=== PATIENT | female | born 1955 | race Caucasian/White ===

== ENCOUNTER 2017-05-15 22:37 | Emergency (ER) | payer BC ==
[2017-05-15 23:22] VITALS: RESP 18
[2017-05-15 23:33] LABS: Basophils % (A) 1 %; CH 27.9; CHCM 32.8; Eosinophils # (A) 0.1 k/uL (0-0.7); Eosinophils % (A) 2 %; HCT 41.7 % (34.0-46.0); HDW 2.46; HGB 13.3 gm/dL (11.4-16.0); Luc # (Auto) 0.13; Luc % (Auto) 2; Lymphocytes # (A) 2.6 k/uL (1.0-4.8); Lymphocytes % (A) 42 %; MCH 27.4 pg (25.0-35.0); MCV 85.5 fL (80.0-100.0); Monocytes # (A) 0.3 k/uL (0-1.0); Monocytes % (A) 5 %; Neutrophils % (A) 48 %; RBC 4.88 m/uL (3.80-5.40); RDW 13.4 % (11.5-15.5); WBC 6.3 k/uL (3.8-10.6); WBC (Perox) 5.98
[2017-05-15 23:35] LABS: ALT 38 U/L (9-52); AST 21 U/L (14-36); Alkaline Phosphatase 71 U/L (38-126); Amylase 54 U/L (30-110); Anion Gap 11 mmol/L; Blood Urea Nitrogen 17 mg/dL (7-17); Calcium 9.7 mg/dL (8.4-10.2); Carbon Dioxide 21 mmol/L (22-30); Chloride 106 mmol/L (98-107); Glucose 183 mg/dL (74-99); Magnesium 1.9 mg/dL (1.6-2.3); Non-African American GFR(MDRD) >60 (>60 ml/min/1.73 sqM); Potassium 3.5 mmol/L (3.5-5.1); Sodium 138 mmol/L (137-145); Total Bilirubin 0.9 mg/dL (0.2-1.3); Total Protein 6.9 g/dL (6.3-8.2)
[2017-05-15 23:42] LABS: INR 1.1 (<1.2); Partial Thromboplastin Time 23.9 sec (22.0-30.0); Prothrombin Time 11.3 sec (9.0-12.0)
[2017-05-15 23:45] LABS: Creatine Kinase 149 U/L (30-135)
--- NOTE | 2017-05-15 23:46 | XR ---
EXAMINATION TYPE: XR chest 1V portable DATE OF EXAM: 05/15/2017 COMPARISON: 06/27/2016 HISTORY: Chest pain TECHNIQUE: Single frontal view of the chest is obtained. FINDINGS: Heart and mediastinum are normal. Lungs are clear. Diaphragm is normal. There are chest le ads. Bony thorax is intact. IMPRESSION: Normal chest. No change.
--- NOTE | 2017-05-15 23:54 | ED ---
Chest Pain HPI - General Chief Complaint: Chest Pain Stated Complaint: Chest Pain Time Seen by Provider: 05/15/17 22:44 Source: patient Mode of arrival: wheelchair Limitations: no limitations - History of Present Illness Initial Comments: This patient is a 61 year old woman who presents to be evaluated for epigastric and substernal chest pain that developed couple of hours ago as she was eating. The patient states that it felt like her blood was cold there. The pain was constant, moderate intensity, though it resolved after she decided to come emergency department. She did not note any worsening or relieving factors. Patient denied any associated symptoms. No dyspnea, diaphoresis, nausea or vomiting, palpitations, lightheadedness or syncope. Patient states that she has never been a smoker. She states that her mother did require a pacemaker but she is not aware of family members having [facility]. In addition patient states she had a stress test in the cardiology clinic a couple of months ago and was told that this was normal. MD Complaint: chest pain Onset/Timin -: hour(s) Onset: after eating Pain Location: substernal Pain Radiation: none Severity: moderate Quality: other (Like the blood was cold) Consistency: constant, now resolved Improves With: nothing Worsens With: nothing Treatments Prior to Arrival: none - Related Data Home Medications Medication Instructions Recorded Confirmed Calcium Carbonate [Tums] 500 mg PO ONCE PRN 05/15/17 05/15/17 Allergies Allergy/AdvReac Type Severity Reaction Status Date / Time codeine Allergy Swelling Verified 05/15/17 23:12 Review of Systems ROS Statement: Those systems with pertinent positive or pertinent negative responses have been documented in the HPI. ROS Other: All systems not noted in ROS Statement are negative. Constitutional: Denies: fever, chills Respiratory: Denies: cough, dyspnea, wheezes Cardiovascular: Reports: chest pain. Denies: palpitations, syncope Gastrointestinal: Denies: abdominal pain, nausea, vomiting Genitourinary: Denies: dysuria, hematuria Musculoskeletal: Denies: back pain Skin: Denies: rash Neurological: Denies: headache, weakness, numbness Psychiatric: Reports: anxiety EKG Findings - EKG Results: EKG: interpreted by ERMD, sinus rhythm (Rate 94 bpm), normal axis, normal QRS - Blocks, [place], Hypertrophy, ST Abn: Repolarization changes or abnormalities: nonspecific abnormality, ST segment, and/or T wave Past Medical History Past Medical History: Diabetes Mellitus, Hyperlipidemia, Hypertension, Osteoarthritis (OA), Thyroid Disorder Additional Past Medical History / Comment(s): diabetes-diet controlled, neuropathy feet, leg weakness on occasion, pain in neck area History of Any Multi-Drug Resistant Organisms: None Reported Past Surgical History: Back Surgery, Hysterectomy Additional Past Surgical History / Comment(s): multiple moles removed, bartholin cyst , back surgery is scapping of the l4-l5 Past Anesthesia/Blood Transfusion Reactions: No Reported Reaction Additional Past Anesthesia/Blood Transfusion Reaction / Comment(s): pt Jehovah' s Witness states does not want blood or blood products Past Psychological History: Depression Smoking Status: Never smoker Past Alcohol Use History: Rare Past Drug Use History: None Reported - Past Family History Mother Family Medical History: Thyroid Disorder Additional Family Medical History / Comment(s): partial thyroidectomy Brother(s) Family Medical History: Deep Vein Thrombosis (DVT) General Exam Limitations: no limitations General appearance: alert, in no apparent distress Head exam: Present: atraumatic, normocephalic Eye exam: Present: normal appearance. Absent: scleral icterus, conjunctival injection Neck exam: Present: normal inspection, full ROM Respiratory exam: Present: normal lung sounds bilaterally. Absent: respiratory distress, wheezes, rales, rhonchi, stridor, chest wall tenderness Cardiovascular Exam: Present: regular rate, normal rhythm, normal heart sounds. Absent: systolic murmur, diastolic murmur, rubs, gallop GI/Abdominal exam: Present: soft. Absent: distended, tenderness, guarding, rebound, mass Extremities exam: Present: normal inspection, normal capillary refill. Absent: pedal edema, calf tenderness Back exam: Present: normal inspection. Absent: CVA tenderness (R), CVA tenderness (L) Neurological exam: Present: alert Skin exam: Present: warm, dry, intact, normal color. Absent: rash Course Vital Signs 05/15/17 05/15/17 05/15/17 22:38 23:20 23:22 Temperature 97.8 F Pulse Rate 98 94 Pulse Rate [ 94 Control Operator ] Respiratory 16 18 Rate Blood Pressure 216/98 152/86 O2 Sat by Pulse 99 98 Oximetry Chest Pain [facility] Patient is a 61-year-old woman who presents with then episode of atypical chest pain. She does not have risk factors. She did have a recent stress test that was negative. All of her symptoms have resolved then she feels well. 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 She understands that she does need to return should any symptoms recur or any new symptoms develop. Disposition Clinical Impression: Chest pain Disposition: HOME SELF-CARE Condition: Good Instructions: Chest Pain (ED) Referrals: Jet Boswell DO [Primary Care Provider] - 1-2 days
[2017-05-15 23:59] LABS: Troponin I <0.012 ng/mL (0.000-0.034)
[2017-05-16 00:01] LABS: Creatine Kinase MB 2.9 ng/mL (0.0-2.4)
[2017-05-16 00:30] VITALS: BP 145/81; PULSE 88; TEMP 97
== END 2017-05-16 00:36 | disposition home or self-care (01) ==
LOC: EC 22:37
DX: R07.89 Other chest pain (principal); R10.13 Epigastric pain; Z88.5 Allergy status to narcotic agent
CPT/HCPCS: 36415; 71010; 80053; 82150; 82550; 82553; 83690; 83735; 84484; 85025; 85379; 85610; 85730; 93005; 99285

== ENCOUNTER → 2018-05-04 | Outpatient (CLI) | payer BC ==
--- NOTE | 2018-05-05 06:35 | US ---
EXAMINATION TYPE: US thyroid st tissue head/neck DATE OF EXAM: 05/04/2018 COMPARISON: Prior thyroid ultrasound September 21, 2015. CLINICAL HISTORY: E03.9 Hypothyroidism. hx of nodules, bx= inconclusive per patient. No thyroid medi cations. GLAND SIZE: Right Lobe: 4.8 x 2.0 x 1.5 cm Overall Parenchyma: heterogenous Left Lobe: 5.5 x 3.9 x 3.5 cm Overall Parenchyma: heterogeneous Isthmus Thickness: 0.4 cm NODULES RIGHT: # of nodules measured on right: 3 1. 1.7 X 1.5 x 1.3 cm mixed nodule at the lower pole with well-defined margins. This nodule is wid er than tall and shows intranodular vascularity. Prior size: 1.2 x 1.0 x 1.5 cm 2. 1.1 X 1.1 x 0.8 cm mixed nodule at the mid pole with well-defined margins. This nodule is wider than tall and shows intranodular vascularity. Prior size: 0.8 x 0.7 x 0.8 cm 3. 1.1 X 0.8 x 0.9 cm mixed nodule at the mid pole with well-defined margins. This nodule is wider than tall and shows intranodular vascularity. Hard to determine if this was same nodule as previous d ue to cluster of nodules. Prior size: 1.3 x 1.1 x 1.7 cm LEFT: # of nodules measured on left: 2 1. 4.9 X 3.6 x 1.7 cm mixed nodule at the mid pole with well-defined margins. This nodule is wider than tall and shows intranodular vascularity. Prior size: 4.6 x 1.7 x 2.4 cm 2. 1.7 X 1.8 x 1.0 cm mixed nodule at the lower pole with well-defined margins. This nodule is wide r than tall and shows intranodular vascularity. Prior size: 1.6 x 1.1 x 1.8 cm ISTHMUS: # of nodules measured in the isthmus: 0 Bilateral neck scanned, no evidence of lymphadenopathy. IMPRESSION: Findings consistent with multinodular goiter redemonstrated as there is heterogeneous enlarged thyroi d with multiple nodules, dominant nodule left thyroid lobe is not significantly changed. No
== END | disposition home or self-care (01) ==
LOC: RADUSWWP 15:26
PROVIDERS: ATTEND Family Medicine
DX: E04.2 Nontoxic multinodular goiter (principal); E03.9 Hypothyroidism, unspecified
CPT/HCPCS: 76536

== ENCOUNTER → 2018-06-16 | Outpatient (CLI) | payer BC ==
--- NOTE | 2018-06-16 10:57 | BD ---
EXAMINATION TYPE: Axial Bone Density DATE OF EXAM: 06/16/2018 COMPARISON: 06/16/2015 CLINICAL HISTORY: Postmenopausal female. Osteoporosis screening. Height: 5 FT 7 IN Weight: 192 FRAX RISK QUESTIONS: Secondary Osteoporosis: 3. Menopause before 45: YES RISK FACTORS HISTORY OF: Surgery to Spine/Hip(right/left)/Wrist (right/left): LUMBAR SHAVING PER PT When: 15 YEARS AGO Active: YES Postmenopausal woman: PART HYST AGE UNSURE Take estrogen and/or progesterone medications: TOOK BIOIDENTICAL HORMONES How lon 1/2 YRS NO LONGER TAKES Lost more than 2 inches in height since high school: YES MEDICATIONS: Additional Medications: NONE Additional History: EXAM MEASUREMENTS: Bone mineral densitometry was performed using the [employer]. Bone mineral density as measured about the Lumbar spine is: ----- L1-L4(G/cm2): 1.278 T Score Values are as follows: ----- L2: 0.9 ----- L3: 1.6 ----- L4: 0.8 ----- L1-L4: 0.8 Bone mineral density has: DECREASED -2.1 % since study of: 2014 Bone mineral density about the R hip (g/cm2): 0.823 Bone mineral density about the L hip (g/cm2): 0.852 T Score values are as follows: -----R Neck: -1.5 -----L Neck: -1.3 -----R Total: -0.8 -----L Total: -0.6 Bone mineral density has: INCREASED 1.8 % since study of: 2014 IMPRESSION: Osteopenia (T Score between -2.5 and -1) with regards to the bilateral femurs. There is slightly increased risk of fracture and the patient may be considered for treatment. Re-Screen 2-5 years. NOTE: T-SCORE=SD OF THE YOUNG ADULT MEAN.
== END ==
LOC: RADBDWWP 07:01
PROVIDERS: ATTEND Family Medicine
DX: M85.852 Other specified disorders of bone density and structure, left thigh (principal); M85.851 Other specified disorders of bone density and structure, right thigh; Z78.0 Asymptomatic menopausal state
CPT/HCPCS: 77080

== ENCOUNTER → 2018-08-03 | Outpatient (CLI) | payer BC ==
--- NOTE | 2018-08-09 09:48 | MM ---
Reason for exam: screening (asymptomatic). Last mammogram was performed 1 year and 1 month ago. History: Patient is postmenopausal. Family history of premenopausal breast cancer in sister at age 36 and premenopausal breast cancer in sister at age 50. Benign stereotactic core biopsy of the right breast, August 06, 2002. Cyst aspiration of the right breast. Core biopsy of the right breast. Took estrogen for 14 years. Took other hormone for 2 years. MG 3D Screening Mammo W/Cad Bilateral CC and MLO view(s) were taken. Prior study comparison: July 16, 2017, bilateral MG 3d screening mammo w/cad. June 06, 2015, bilateral MG 3d screening mammo w/cad. There are scattered fibroglandular densities. Previous mammotome biopsy right breast with stable adjacent group of calcification. Adjacent central asymmetry on the right CC view is also unchanged from 2015. No significant changes when compared with prior studies. ASSESSMENT: Benign, BI-RAD 2 RECOMMENDATION: Routine screening mammogram of both breasts in 1 year.
== END | disposition home or self-care (01) ==
LOC: RADMAMWWP 07:53
PROVIDERS: ATTEND Family Medicine
DX: Z12.31 Encounter for screening mammogram for malignant neoplasm of breast (principal); Z80.3 Family history of malignant neoplasm of breast
CPT/HCPCS: 77063; 77067

== ENCOUNTER → 2019-08-26 | Outpatient (CLI) | payer BC ==
--- NOTE | 2019-08-27 13:41 | MM ---
Reason for exam: screening (asymptomatic). Last mammogram was performed 1 year and 1 month ago. History: Patient is postmenopausal. Family history of premenopausal breast cancer in sister at age 36 and premenopausal breast cancer in sister at age 50. Benign stereotactic core biopsy of the right breast, August 06, 2002. Cyst aspiration of the right breast. Core biopsy of the right breast. Took estrogen for 14 years. Took other hormone for 2 years. Physical Findings: A clinical breast exam by your physician is recommended on an annual basis and results should be correlated with mammographic findings. MG 3D Screening Mammo W/Cad Bilateral CC and MLO view(s) were taken. Prior study comparison: August 03, 2018, bilateral MG 3d screening mammo w/cad. July 16, 2017, bilateral MG 3d screening mammo w/cad. The breast tissue is heterogeneously dense. This may lower the sensitivity of mammography. Benign appearing bilateral calcifications. No suspicious abnormality. Right biopsy marker noted. No significant changes when compared with prior studies. ASSESSMENT: Benign, BI-RAD 2 RECOMMENDATION: Routine screening mammogram of both breasts in 1 year.
== END | disposition home or self-care (01) ==
LOC: RADMAMWWP 09:30
PROVIDERS: ATTEND Family Medicine
DX: Z12.31 Encounter for screening mammogram for malignant neoplasm of breast (principal)
CPT/HCPCS: 77063; 77067

== ENCOUNTER → 2019-08-26 | Outpatient (CLI) | payer BC ==
--- NOTE | 2019-08-26 11:39 | XR ---
EXAMINATION TYPE: XR chest 2V DATE OF EXAM: 08/26/2019 COMPARISON: R chest 05/15/2017 HISTORY: Hypertension TECHNIQUE: Frontal and lateral views of the chest are obtained. FINDINGS: There is no focal air space opacity, pleural effusion, or pneumothorax seen. The cardiac silhouette size is within normal limits. There is eventration of the right hemidiaphragm. The osseo us structures are intact. Linear strand-like density at the right lung base likely reflects focal sca rring IMPRESSION: No acute cardiopulmonary process.
== END | disposition home or self-care (01) ==
LOC: RADXRMAIN 09:47
PROVIDERS: ATTEND Family Medicine
DX: I10 Essential (primary) hypertension (principal)
CPT/HCPCS: 71046

== ENCOUNTER → 2019-09-23 | Outpatient (CLI) | payer BC ==
--- NOTE | 2019-09-24 08:23 | XR ---
Left foot HISTORY: Trauma and pain fourth and fifth digits 3 views the left foot Soft tissue swelling is present. Bone mineralization is reduced. Joint spaces, alignment are maintain ed. There is a plantar calcaneal spur. Enthesophyte present at the insertion of the Achilles tendon. Calcification present along the plantar aponeurosis. IMPRESSION: No fracture or dislocation is evident.
== END | disposition home or self-care (01) ==
LOC: RADXRMAIN 14:51
PROVIDERS: ATTEND Family Medicine
DX: M79.672 Pain in left foot (principal)

== ENCOUNTER → 2020-02-18 | Outpatient (CLI) | payer BC ==
--- NOTE | 2020-02-18 11:45 | P.STRESS ---
- Stress Test Note Stress Test Results/Findings: Exam Performed: stress echo exercise with con Exam Date: 02/18/20 Reason for Exam: ATYPICAL CP Height: 5 ft 8 in Weight: 200 kg Protocol: KAILYN Stage: 3 Duration of Exercise: 8 MIN Resting Heart Rate: 86 Resting Blood Pressure: 130/82 Maximum Achieved Heart Rate: 158 Maximum Achieved Blood Pressure: 202/78 85% PMHR: 133 100% PMHR: 157 METS: 9.7 Technologist Comment: Stress Test Results/Findings: This is a 64-year-old female with history of diabetes being evaluated for symptoms of chest pain and palpitations. Stress data: Baseline EKG showed sinus rhythm with normal [place] interval, QRS duration. Blood pressure at rest is 130/82 with pulse rate of 86. Patient exercised on the Kailyn protocol for 8 minutes achieving a maximum rate of 158 with with a blood pressure of 202/78. EKGs taken during and after exercise did not reveal any changes of ischemia. Rare PVCs were noted. Echo data: Baseline echo images showed normal wall motion and thickening. Exercise echo images showed augmentation of wall motion and thickening in all the segments. The study was done with [employer]
--- NOTE | 2020-02-18 16:09 | ECHOS ---
Stress Test Results/Findings: Exam Performed: stress echo exercise with con Exam Date: 02/18/20 Reason for Exam: ATYPICAL CP Height: 5 ft 8 in Weight: 200 kg Protocol: KAILYN Stage: 3 Duration of Exercise: 8 MIN Resting Heart Rate: 86 Resting Blood Pressure: 130/82 Maximum Achieved Heart Rate: 158 Maximum Achieved Blood Pressure: 202/78 85% PMHR: 133 100% PMHR: 157 METS: 9.7 Technologist Comment: Stress Test Results/Findings: This is a 64-year-old female with history of diabetes being evaluated for symptoms of chest pain and palpitations. Stress data: Baseline EKG showed sinus rhythm with normal MI interval, QRS duration. Blood pressure at rest is 130/82 with pulse rate of 86. Patient exercised on the Kailyn protocol for 8 minutes achieving a maximum rate of 158 with with a blood pressure of 202/78. EKGs taken during and after exercise did not reveal any changes of ischemia. Rare PVCs were noted. Echo data: Baseline echo images showed normal wall motion and thickening. Exercise echo images showed augmentation of wall motion and thickening in all the segments. The study was done with [employer] Final Impression:#1. Negative stress test .#2.Negative stress echo. [employer]
== END | disposition home or self-care (01) ==
LOC: RADNMMAIN 09:51
PROVIDERS: ATTEND Family Medicine
DX: R07.89 Other chest pain (principal); I10 Essential (primary) hypertension; Z88.5 Allergy status to narcotic agent; Z88.8 Allergy status to other drugs, medicaments and biological substances
CPT/HCPCS: 93351; Q9950

== ENCOUNTER 2020-05-23 12:11 | Observation (INO) | payer BC ==
--- NOTE | 2020-05-23 12:44 | ED ---
Dizziness HPI - General Chief Complaint: Dizziness Stated Complaint: dizziness, neck pain Time Seen by Provider: 05/23/20 12:15 Source: patient Mode of arrival: wheelchair Limitations: no limitations - History of Present Illness Initial Comments: Patient is a 64-year-old female past nuchal history of diet controlled diabetes, hypertension not currently on any medications who presents to the emergency department with reported sensation of feeling off balance. Reports that she woke up at 8:00 this morning and attempted to go to the bathroom. [place] as if she could not stand up straight. Patient then went back to bed when she woke back up the symptoms persisted. She denies room spinning sensation. No headaches. Does admit to blurred vision worse in the right eye. No unilateral numbness or weakness. No speech difficulties. Denies presyncope sensation. She recorded her blood pressures at home and noted that they were significantly high. Denies any chest pain or shortness of breath. No abdominal pain. No recent trauma or chiropractic manipulations of the neck. Patient also reports to left-sided neck pain secondary to a palpable mass at the area. No other alleviating, precipitating or modifying factors - Related Data Home Medications Medication Instructions Recorded Confirmed LORazepam [Ativan] 1 mg PO HS PRN 05/23/20 05/23/20 Previous Rx's Medication Instructions Recorded Aspirin EC [Ecotrin Low Dose] 81 mg PO DAILY #30 tablet. 05/24/20 Atorvastatin [Lipitor] 40 mg PO HS #30 tab 05/24/20 amLODIPine [Norvasc] 5 mg PO DAILY #30 tab 05/24/20 Allergies Allergy/AdvReac Type Severity Reaction Status Date / Time codeine Allergy Swelling Verified 05/23/20 12:56 Review of Systems ROS Statement: Those systems with pertinent positive or pertinent negative responses have been documented in the HPI. ROS Other: All systems not noted in ROS Statement are negative. Past Medical History Past Medical History: Diabetes Mellitus, Hyperlipidemia, Hypertension, Osteoarthritis (OA), Thyroid Disorder Additional Past Medical History / Comment(s): diabetes-diet controlled, neuropathy feet, leg weakness on occasion, pain in neck area History of Any Multi-Drug Resistant Organisms: None Reported Past Surgical History: Back Surgery, Hysterectomy Additional Past Surgical History / Comment(s): multiple moles removed, bartholin cyst , back surgery l4-l5 Past Anesthesia/Blood Transfusion Reactions: No Reported Reaction Additional Past Anesthesia/Blood Transfusion Reaction / Comment(s): pt Scientologist states does not want blood or blood products Past Psychological History: Depression Past Alcohol Use History: Rare Past Drug Use History: None Reported - Past Family History Mother Family Medical History: Thyroid Disorder Additional Family Medical History / Comment(s): partial thyroidectomy Brother(s) Family Medical History: Deep Vein Thrombosis (DVT) Additional Family Medical History / Comment(s): irregular heart rate-cardiac ablation x3 Sister(s) Family Medical History: Cancer Additional Family Medical History / Comment(s): stent to drain fluid on brain,esophageal,brain,breast General Exam Limitations: no limitations General appearance: alert, in no apparent distress Head exam: Present: atraumatic, normocephalic, normal inspection Eye exam: Present: normal appearance, PERRL, EOMI. Absent: scleral icterus, conjunctival injection, periorbital swelling ENT exam: Present: normal exam, mucous membranes moist Neck exam: Present: normal inspection. Absent: tenderness, meningismus, lymphadenopathy Respiratory exam: Present: normal lung sounds bilaterally. Absent: respiratory distress, wheezes, rales, rhonchi, stridor Cardiovascular Exam: Present: regular rate, normal rhythm, normal heart sounds. Absent: systolic murmur, diastolic murmur, rubs, gallop, clicks GI/Abdominal exam: Present: soft, normal bowel sounds. Absent: distended, tenderness, guarding, rebound, rigid Extremities exam: Present: normal inspection, full ROM, normal capillary refill. Absent: tenderness, pedal edema, joint swelling, calf tenderness Back exam: Present: normal inspection Neurological exam: Present: alert, oriented X3, CN II-XII intact, other (finger to nose symmetric bilaterally) Psychiatric exam: Present: normal affect, normal mood Skin exam: Present: warm, dry, intact, normal color. Absent: rash Course Vital Signs 05/23/20 05/23/20 05/23/20 12:12 13:29 14:39 Temperature 97.9 F Pulse Rate 99 75 81 Pulse Rate [ Pulse Oximetery ] Respiratory 18 18 18 Rate Blood Pressure 197/128 179/98 160/95 Blood Pressure [Right Arm Sitting] O2 Sat by Pulse 98 97 96 Oximetry 05/23/20 05/23/20 15:50 17:08 Temperature 98.2 F 98 F Pulse Rate 84 Pulse Rate [ 87 Pulse Oximetery ] Respiratory 18 16 Rate Blood Pressure 168/92 Blood Pressure 182/101 [Right Arm Sitting] O2 Sat by Pulse 98 97 Oximetry EKG Findings - EKG Comments: EKG Findings:: EKG demonstrates normal sinus rhythm with a ventricular rate of 82. IA interval 132. QRS 88. QTC 436. No acute ST segment elevations or depressions concerning for ischemic changes Medical Decision Making - Medical Decision Making Upon arrival the patient is placed into room 8. A thorough history and physical exam was performed. Patient is hooked to his pulse ox and cardiac monitoring. 12-lead EKG was performed. Laboratories is were conducted. Patient went over for a CT of her brain as well as CT angiography. Laboratory studies are unremarkable. TSH is 0.424 with a free T4 of 1.21. CT of the patient's brain demonstrates no significant abnormality. The patient does get up and ambulates to the bathroom. She remains ataxic. Because of this I did recommend admission for neurology consultation. Called and discussed the case with Dr. Crisostomo who accepted admission. Patient was then transferred to the floor in stable condition - Lab Data Result diagrams: 05/24/20 06:22 05/24/20 06:22 Lab Results 05/23/20 05/23/20 05/23/20 Range/Units 13:06 13:06 13:06 WBC 7.5 (3.8-10.6) k/uL RBC 5.29 (3.80-5.40) m/uL Hgb 14.5 (11.4-16.0) gm/dL Hct 45.2 (34.0-46.0) % MCV 85.3 (80.0-100.0) fL MCH 27.5 (25.0-35.0) pg MCHC 32.2 (31.0-37.0) g/dL RDW 13.8 (11.5-15.5) % Plt Count 291 (150-450) k/uL Neutrophils % 58 % Lymphocytes % 33 % Monocytes % 4 % Eosinophils % 3 % Basophils % 1 % Neutrophils # 4.3 (1.3-7.7) k/uL Lymphocytes # 2.5 (1.0-4.8) k/uL Monocytes # 0.3 (0-1.0) k/uL Eosinophils # 0.2 (0-0.7) k/uL Basophils # 0.1 (0-0.2) k/uL Sodium 137 (137-145) mmol/L Potassium 4.4 (3.5-5.1) mmol/L Chloride 108 H (98-107) mmol/L Carbon Dioxide 24 (22-30) mmol/L Anion Gap 5 mmol/L BUN 13 (7-17) mg/dL Creatinine 0.47 L (0.52-1.04) mg/dL Est GFR (CKD-EPI)AfAm >90 (>60 ml/min/1.73 sqM) Est GFR (CKD-EPI)NonAf >90 (>60 ml/min/1.73 sqM) Glucose 119 H (74-99) mg/dL Plasma Lactic Acid Man (0.7-2.0) mmol/L Calcium 9.9 (8.4-10.2) mg/dL Total Bilirubin 0.7 (0.2-1.3) mg/dL AST 24 (14-36) U/L ALT 24 (4-34) U/L Alkaline Phosphatase 74 (38-126) U/L Troponin I <0.012 (0.000-0.034) ng/mL Total Protein 7.3 (6.3-8.2) g/dL Albumin 4.1 (3.5-5.0) g/dL TSH 0.424 L (0.465-4.680) mIU/L Free T4 1.21 (0.78-2.19) ng/dL Urine Color Urine Appearance (Clear) Urine pH (5.0-8.0) Ur Specific [place] (1.001-1.035) Urine Protein (Negative) Urine Glucose (UA) (Negative) Urine Ketones (Negative) Urine Blood (Negative) Urine Nitrite (Negative) Urine Bilirubin (Negative) Urine Urobilinogen (<2.0) mg/dL Ur Leukocyte Esterase (Negative) 05/23/20 05/23/20 Range/Units 13:06 14:19 WBC (3.8-10.6) k/uL RBC (3.80-5.40) m/uL Hgb (11.4-16.0) gm/dL Hct (34.0-46.0) % MCV (80.0-100.0) fL MCH (25.0-35.0) pg MCHC (31.0-37.0) g/dL RDW (11.5-15.5) % Plt Count (150-450) k/uL Neutrophils % % Lymphocytes % % Monocytes % % Eosinophils % % Basophils % % Neutrophils # (1.3-7.7) k/uL Lymphocytes # (1.0-4.8) k/uL Monocytes # (0-1.0) k/uL Eosinophils # (0-0.7) k/uL Basophils # (0-0.2) k/uL Sodium (137-145) mmol/L Potassium (3.5-5.1) mmol/L Chloride (98-107) mmol/L Carbon Dioxide (22-30) mmol/L Anion Gap mmol/L BUN (7-17) mg/dL Creatinine (0.52-1.04) mg/dL Est GFR (CKD-EPI)AfAm (>60 ml/min/1.73 sqM) Est GFR (CKD-EPI)NonAf (>60 ml/min/1.73 sqM) Glucose (74-99) mg/dL Plasma Lactic Acid Man 1.1 (0.7-2.0) mmol/L Calcium (8.4-10.2) mg/dL Total Bilirubin (0.2-1.3) mg/dL AST (14-36) U/L ALT (4-34) U/L Alkaline Phosphatase (38-126) U/L Troponin I (0.000-0.034) ng/mL Total Protein (6.3-8.2) g/dL Albumin (3.5-5.0) g/dL TSH (0.465-4.680) mIU/L Free T4 (0.78-2.19) ng/dL Urine Color Colorless Urine Appearance Clear (Clear) Urine pH 7.0 (5.0-8.0) Ur Specific [place] 1.038 H (1.001-1.035) Urine Protein Negative (Negative) Urine Glucose (UA) Negative (Negative) Urine Ketones Negative (Negative) Urine Blood Negative (Negative) Urine Nitrite Negative (Negative) Urine Bilirubin Negative (Negative) Urine Urobilinogen <2.0 (<2.0) mg/dL Ur Leukocyte Esterase Negative (Negative) Disposition Clinical Impression: Ataxia, Vertebral basilar insufficiency Disposition: ADMITTED IP TO THIS HOSP Condition: Good Is patient prescribed a controlled substance at d/c from ED?: No Decision to Admit Reason: Admit from EC Decision Date: 05/23/20 Decision Time: 15:31
[2020-05-23 13:14] LABS: Basophils # (A) 0.1 k/uL (0-0.2); Basophils % (A) 1 %; Eosinophils # (A) 0.2 k/uL (0-0.7); Eosinophils % (A) 3 %; HCT 45.2 % (34.0-46.0); HGB 14.5 gm/dL (11.4-16.0); Lymphocytes # (A) 2.5 k/uL (1.0-4.8); Lymphocytes % (A) 33 %; MCH 27.5 pg (25.0-35.0); MCHC 32.2 g/dL (31.0-37.0); MCV 85.3 fL (80.0-100.0); Mean Platelet Volume 7.4; Monocytes # (A) 0.3 k/uL (0-1.0); Monocytes % (A) 4 %; Neutrophils # (A) 4.3 k/uL (1.3-7.7); Neutrophils % (A) 58 %; Platelet Count 291 k/uL (150-450); RBC 5.29 m/uL (3.80-5.40); RDW 13.8 % (11.5-15.5); WBC 7.5 k/uL (3.8-10.6)
[2020-05-23 13:22] LABS: Sodium 137 mmol/L (137-145)
[2020-05-23 13:25] LABS: ALT 24 U/L (4-34); AST 24 U/L (14-36); African American GFR (CKD) >90 (>60 ml/min/1.73 sqM); Albumin 4.1 g/dL (3.5-5.0); Alkaline Phosphatase 74 U/L (38-126); Anion Gap 5 mmol/L; Blood Urea Nitrogen 13 mg/dL (7-17); Calcium 9.9 mg/dL (8.4-10.2); Carbon Dioxide 24 mmol/L (22-30); Chloride 108 mmol/L (98-107); Glucose 119 mg/dL (74-99); Non-African American GFR(CKD) >90 (>60 ml/min/1.73 sqM); Potassium 4.4 mmol/L (3.5-5.1); Total Bilirubin 0.7 mg/dL (0.2-1.3); Total Protein 7.3 g/dL (6.3-8.2)
--- NOTE | 2020-05-23 14:11 | CT ---
EXAMINATION TYPE: CT brain wo con DATE OF EXAM: 05/23/2020 HISTORY: Hypertension, dizziness CT DLP: 1085.8 mGycm. Automated Exposure Control for Dose Reduction was Utilized. TECHNIQUE: CT scan of the head is performed without contrast. COMPARISON: CT brain June 27, 2016. FINDINGS: There is no acute intracranial hemorrhage or midline shift identified. Ventricles and sul ci within normal limits in size for patient's age. Magallanes-white matter differentiation maintained. Part ial visualization of mucous retention cyst or polyp in the posterior inferior right maxillary sinus o therwise paranasal sinuses remain clear and globes are intact bilaterally. IMPRESSION: No acute intracranial hemorrhage or midline shift. No significant change from prior.
[2020-05-23 14:26] LABS: Appearance,Urine Clear (Clear); Bilirubin,Urine Negative (Negative); Blood,Urine Negative (Negative); Color,Urine Colorless; Glucose,Urine (UA) Negative (Negative); Ketones,Urine Negative (Negative); Leukocyte Esterase,Urine Negative (Negative); Nitrite,Urine Negative (Negative); Protein,Urine Negative (Negative); Specific Gravity,Urine 1.038 (1.001-1.035); Urobilinogen,Urine <2.0 mg/dL (<2.0)
[2020-05-23 14:35] LABS: T4, Free (Free Thyroxine) 1.21 ng/dL (0.78-2.19)
--- NOTE | 2020-05-23 14:38 | CT ---
EXAMINATION TYPE: CT angio head neck DATE OF EXAM: 05/23/2020 HISTORY: Hypertension, dizziness COMPARISON: CT brain same date CT DLP: 484.8 mGycm. Automated Exposure Control for Dose Reduction was Utilized. TECHNIQUE: CTA scan of the neck is performed with IV Contrast, patient injected with 65 mL of Isovue 370, axial images are obtained, coronal and sagittal reformatted images are reviewed. Three-D recons tructed images are created on an independent workstation and reviewed. FINDINGS: Carotid/Vascular Structures: The transverse aorta, innominate, left and right common carotid, left an d right subclavian, left and right vertebral arteries are patent. Vertebral arteries show left verteb ral artery dominance, internal and external carotid arteries are patent, there is no stenosis of the proximal internal carotid artery by NASCET criteria. [place] shows anterior posterior circulation are patent. There is no evident aneurysm, disse ction, or embolus. Other: Indeterminate nodule left upper lobe, possibly calcified measures only 2 mm, axial image #9. T here is enlargement of the thyroid gland, extension into the superior mediastinum with heterogeneous density consistent with multinodular goiter. There are degenerative disc changes in the cervical spin e, multilevel foraminal encroachment. Probable mucus retention cyst present within the right maxillar y sinus. IMPRESSION: No significant abnormality is seen.
[2020-05-23] MEDS ORDERED: NALOXONE 0.4 MG/ML 1 ML VIAL IV PRN (15:32)
[2020-05-23] MEDS ORDERED: hydrALAZINE HCL 20 MG/ML 1 ML VIAL IVP PRN (17:34)
[2020-05-23] MEDS: ACETAMINOPHEN TAB 325 MG TAB PO PRN ×2 (17:49→23:44)
[2020-05-23 18:23] LABS: Glucose,Whole Blood 128 mg/dL (75-99)
[2020-05-23] MEDS ORDERED: ONDANSETRON 4 MG/2 ML VIAL IVP PRN (20:25)
--- NOTE | 2020-05-23 22:40 | P.HPIM ---
History of Present Illness H&P Date: 05/23/20 Chief Complaint: Posterior foci stroke, severe ataxia, severe occipital head ache, hypertensi 63-year-old female one of Dr. Boswell patient with past medical history of diet-controlled diabetes, hypertension not controlled, hyperlipidemia, hypothyroidism and mild cognitive impairment who presented to the emergency department at [facility] complaining of severe ataxia with off balance and gait started early this morning and not been able to control her symptom with patient was trying to walk to the bathroom when she had severe abnormal balancing gait become quite bit lightheaded and dizzy without passing out had significant blurred vision along with nausea with no vomiting also developed to have numbness in both upper extremity more than the right than the left side without any speech abnormality slight change in vision. Patient apparently was diagnosed with blood pressure problem long time ago has not been on any medication and whenever it's prescribed patient decided to control her symptom with natural products only. [facility] blood pressure was running over 170/95 with pulse rate mildly rapid at the time with normal pulse ox. Testing at day ED consistent with brain CT showed small vessel disease with no intracranial hemorrhage or abnormality. CTA of the neck came back with no significant stenosis with no blockage or abnormality. When patient attempted to stand up and walk had severe ataxia and developed severe nystagmus was not able to ambulate and walk ended up being hospitalized for the above problem. MRI of the brain was order and patient will be seen neurology. Review of Systems CONSTITUTIONAL: Well-developed no acute respiratory distress. EYES: No icterus sclerae, no conjunctivitis. EARS, NOSE, MOUTH, THROAT, and FACE: No sore throat, lymphadenopathy, carotid bruits or deformity. RESPIRATORY: No SOB cough or wheezes. CARDIOVASCULAR: No CP, Palpitation, PND, Orthopnea, or angina. Mild palpitation GASTROINTESTINAL: No Abd pain, nausea without vomiting, no Diarrhea or constipation, No GI Bleed, no distention or masses. GENITOURINARY: Negative for Hematuria or UTI, no kidney stones. INTEGUMENT/BREAST: Negative for any muscular injury with mild osteoarthritis.. HEMATOLOGIC/LYMPHATIC: Negative for bleed or purpura. MUSCULOSKELTAL: Negative for Myalgia or arthralgia. NEURLOGICAL: Severe ataxia with abnormal balance and gait with severe headache as well with mild blurred vision still have good strength in both extremities with numbness in the upper extremity specially the right side no abnormal speech or swallow BEHAVIORAL/PSYCH: Negative. ENDOCRINE: Negative.\\ Family history: Father diabetes 50s from CAD mother age 83 from CAD patient had 12 siblings one from esophageal cancer and one from metastatic breast cancer one living with hot skin lymphoma in remission. Patient has 3 children with no major medical problem. 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 Past Medical History Past Medical History: Chest Pain / Angina, Diabetes Mellitus, Hyperlipidemia, Hypertension, Memory Impairment, Osteoarthritis (OA), Pneumonia, Thyroid Disorder, Vascular Disorder Additional Past Medical History / Comment(s): diabetes-diet controlled, neuropathy feet, leg weakness on occasion, pain in neck area, tachycardia, varicose vein on left leg History of Any Multi-Drug Resistant Organisms: None Reported Past Surgical History: Back Surgery, Hysterectomy Additional Past Surgical History / Comment(s): multiple moles removed, bartholin cyst , back surgery l4-l5 Past Anesthesia/Blood Transfusion Reactions: No Reported Reaction Additional Past Anesthesia/Blood Transfusion Reaction / Comment(s): pt [employer] states does not want blood or blood products Past Psychological History: Anxiety, Bipolar, Depression Additional Psychological History / Comment(s): "not on meds right now" Smoking Status: Never smoker Past Alcohol Use History: Rare Past Drug Use History: None Reported - Past Family History Mother Family Medical History: Thyroid Disorder Additional Family Medical History / Comment(s): partial thyroidectomy Brother(s) Family Medical History: AFIB, Cancer, Deep Vein Thrombosis (DVT) Additional Family Medical History / Comment(s): irregular heart rate-cardiac ablation x3, hodkins lymphoma Sister(s) Family Medical History: Cancer Additional Family Medical History / Comment(s): stent to drain fluid on brain,esophageal,brain,breast Medications and Allergies Home Medications Medication Instructions Recorded Confirmed Type LORazepam [Ativan] 1 mg PO HS PRN 05/23/20 05/23/20 History Allergies Allergy/AdvReac Type Severity Reaction Status Date / Time codeine Allergy Swelling Verified 05/23/20 12:56 Physical Exam Vitals: Vital Signs Temp Pulse Pulse Resp BP BP Pulse Ox 05/23/20 17:08 98 F 87 16 182/101 97 05/23/20 15:50 98.2 F 84 18 168/92 98 05/23/20 14:39 81 18 160/95 96 05/23/20 13:29 75 18 179/98 97 05/23/20 12:12 97.9 F 99 18 197/128 98 Intake and Output 05/23/20 05/23/20 05/23/20 06:59 14:59 22:59 Other: Voiding Method Toilet # Voids 1 Weight 90.718 kg 90.718 kg General Appearance: Alert, cooperative, no distress, appears stated age. Neck HEENT: Supple, no lymphadenopathy, no thyroid enlargement, no carotid bruits. Lungs: Clear to auscultation without crackles or wheezes no rhonchi, no deformity. Chest Wall: Chest wall normal expansion with deep inspiration no tenderness and no deformity was found on exam, no costochondral pain or discomfort. Heart: Regular rate and rhythm, S1, S2 normal, no murmur, rub or gallop. Back: Symmetric, no curvature, ROM normal, no CVA tenderness. Abdomen: Soft, non-tender, bowel sounds active all four quadrants, no masses, no organomegaly. Extremities: Extremities normal, atraumatic, no cyanosis or edema. Pulses: 2+ and symmetric. Skin: Skin color, texture, tugor normal, no rashes or lesions. Neurologic: Alert oriented x3 cranial nerves II through XII intact, positive slight weakness in the right upper and lower summary compared to the left side with significant normal bouncing gait mild nystagmus when try to follow an object the extreme right. Results CBC & Chem 7: 05/23/20 13:06 05/23/20 13:06 Labs: Abnormal Lab Results - Last 24 Hours (Table) 05/23/20 05/23/20 05/23/20 Range/Units 13:06 14:19 18:22 Chloride 108 H (98-107) mmol/L Creatinine 0.47 L (0.52-1.04) mg/dL Glucose 119 H (74-99) mg/dL POC Glucose (mg/dL) 128 H (75-99) mg/dL TSH 0.424 L (0.465-4.680) mIU/L Ur Specific [place] 1.038 H (1.001-1.035) Thrombosis Risk Factor Assmnt - DVT/VTE Prophylaxis DVT/VTE Prophylaxis: Mechanical Prophylaxis ordered - Choose All That Apply Any of the Below Risk Factors Present?: Yes Each Factor Represents 1 point: Obesity (BMI >25) Other Risk Factors: Yes Each Risk Factor Represents 2 Points: Age 61-74 years Each Risk Factor Represents 3 Points: Family history of DVT/PE Other congenital or acquired thrombophilia - If yes, enter type in comment: No Thrombosis Risk Factor Assessment Total Risk Factor Score: 6 Thrombosis Risk Factor Assessment Level: High Risk Assessment and Plan Assessment: 1 posterior fossa stroke: Patient be admitted to the hospital, carotid ultrasound was done through an angiogram of the neck, echocardiogram was ordered, will keep the neuro exam try to control blood pressure and go for secondary prevention the meanwhile patient will be going for an MRI and neuro consultation based on the finding in the next 24 hours we'll decide on further management. 2 severe abnormal ataxia imbalance and gait secondary to posterior foci stroke patient will start PTOT and advanced gradually. 3 emergency hypertension: Not well control patient be started on Norvasc 5 mg daily titrated up to twice a day we'll keep patient on hydralazine 25 mg every 6 hour for systolic above 160. 4 hyperglycemia/type 2 diabetes: Accu-Chek sliding scales coverage and be done. 5 hyperlipidemia: Remain not on any medication lipid panel will be added to the blood work for tomorrow morning if cholesterol is about 200 should be on statin. 6 recurrent angina and chest pain with no major heart disease at this point. 6 mild PAD: No complication or long-term sequela. 7 GI prophylaxis: Patient be started on Pepcid 20 mg daily. 8 DVT prophylaxis: Knee-high JOHNNY hose and Venodyne boots. CODE STATUS: Full code. Admit patient to observation unit for 1-2 nights stay.
[2020-05-23] MEDS ORDERED: BUTALB/APAP/CAFF 50-325-40MG TAB PO PRN (23:00)
[2020-05-23] MEDS ORDERED: amLODIPine 5 MG TAB PO STA (23:13)
[2020-05-24] MEDS: ACETAMINOPHEN TAB 325 MG TAB PO PRN (05:02)
[2020-05-24 06:50] LABS: Basophils % (A) 0 %; Eosinophils # (A) 0.1 k/uL (0-0.7); Eosinophils % (A) 1 %; HCT 43.2 % (34.0-46.0); HGB 13.6 gm/dL (11.4-16.0); Lymphocytes % (A) 29 %; MCH 27.7 pg (25.0-35.0); MCHC 31.5 g/dL (31.0-37.0); MCV 87.9 fL (80.0-100.0); Mean Platelet Volume 7.1; Monocytes # (A) 0.6 k/uL (0-1.0); Monocytes % (A) 6 %; Neutrophils # (A) 6.4 k/uL (1.3-7.7); Neutrophils % (A) 62 %; Platelet Count 305 k/uL (150-450); RBC 4.92 m/uL (3.80-5.40); RDW 13.9 % (11.5-15.5); WBC 10.2 k/uL (3.8-10.6)
[2020-05-24 06:59] LABS: African American GFR (CKD) >90 (>60 ml/min/1.73 sqM); Anion Gap 7 mmol/L; Blood Urea Nitrogen 17 mg/dL (7-17); Calcium 9.1 mg/dL (8.4-10.2); Carbon Dioxide 21 mmol/L (22-30); Chloride 104 mmol/L (98-107); Glucose 133 mg/dL (74-99); Non-African American GFR(CKD) >90 (>60 ml/min/1.73 sqM); Potassium 4.6 mmol/L (3.5-5.1); Sodium 132 mmol/L (137-145)
[2020-05-24 08:49] VITALS: BP 140/83; PULSE 88; RESP 16; TEMP 98.1
[2020-05-24] MEDS ORDERED: FAMOTIDINE 20 MG TAB PO SCH (09:00)
[2020-05-24 09:35] LABS: Cholesterol 261 mg/dL (<200); HDL Cholesterol 53 mg/dL (40-60); LDL Cholesterol,Calculated 167 mg/dL (0-99); Triglycerides 205 mg/dL (<150)
--- NOTE | 2020-05-24 10:59 | ECHOF ---
Referral Reason:lvfunction MEASUREMENTS -------- HEIGHT: 175.3 cm WEIGHT: 90.7 kg BP: 170/95 RVIDd: 3.0 cm (< 3.3) IVSd: 1.0 cm (0.6 - 1.1) LVIDd: 3.5 cm (3.9 - 5.3) LVPWd: 1.1 cm (0.6 - 1.1) IVSs: 1.7 cm LVIDs: 2.7 cm LVPWs: 1.6 cm LA Diam: 3.1 cm (2.7 - 3.8) Ao Diam: 3.3 cm (2.0 - 3.7) AV Cusp: 1.8 cm (1.5 - 2.6) MV E Malachi: 0.77 m/s MV DecT: 260 ms MV A Malachi: 0.96 m/s MV E/A Ratio: 0.80 FINDINGS -------- Sinus rhythm. This was a technically good study. The left ventricular size is normal. Left ventricular wall thickness is normal. Overall left vent ricular systolic function is normal with, an EF between 60 - 65 %. The right ventricle is normal in size. The left atrium is normal in size. The right atrium is normal in size. Interatrial and interventricular septum intact. The aortic valve is trileaflet and appears structurally normal. The mitral valve is normal. The tricuspid valve appears structurally normal. There is no pulmonic regurgitation present. The aortic root size is normal. Normal inferior vena cava with normal inspiratory collapse consistent with estimated right atrial pre ssure of 5 mmHg. There is no pericardial effusion. CONCLUSIONS -------- 1. The left ventricular size is normal. 2. Left ventricular wall thickness is normal. 3. Overall left ventricular systolic function is normal with, an EF between 60 - 65 %. 4. There is no pericardial effusion. IMMUNOLOGIST: Ritu Lee RD
--- NOTE | 2020-05-24 11:21 | MR ---
EXAMINATION TYPE: MR brain wo con DATE OF EXAM: 05/24/2020 COMPARISON: CT brain from yesterday. HISTORY: Stroke: ataxia, dizziness. TECHNIQUE: Multiplanar, multisequence imaging of the brain and brainstem is performed without IV cont rast. FINDINGS: Diffusion weighted images demonstrate no evidence of a recent infarct or other diffusion abnormality. There is no extraaxial fluid collection or significant white matter signal abnormality. The ventricu lar system and cisternal spaces are normal in size and appearance. The brain volume is age appropria te. Midline structures demonstrate normal morphology. The craniocervical junction appears within normal limits. Normal vascular flow voids are present. Mucous retention cyst or polyp in the posterior right maxillary sinus is redemonstrated otherwise paranasal sinuses remain clear. Globes are intact bilate rally. Nasal septum remains deviated to right of midline. IMPRESSION: No MRI evidence for a recent infarct.
--- NOTE | 2020-05-24 11:58 | P.CNNES ---
History of Present Illness Consult date: 05/24/20 Requesting physician: Sandra Flowers Reason for Consult: acute ataxia History of Present Illness: This is a 64-year-old woman with a medical history of diabetes mellitus and hypertension for past 3-4 years and not on medications that presented to the emergency department on 05/23/2020 for sensation of feeling off balance. She woke-up call at 8:00 in the morning on 05/23/2020 and wanted to go the bathroom but feel she was off. She fellt her balance was off and was leaning towards the right. She went back to bed and then when she woke up again her symptoms still persisted. Also she stated she felt her right eye was blurry and unsure of duration. She denies of any dizziness, ringing of ears of hearing loss. She denies any headache. She did feel nauseous but no vomitting. Denies fever. Patient denied difficulty getting her words out, numbness or weakness. She reports left neck pain secondary to palpable mass but somewhat better today. She stated that the for her history of hypertension as well as hyperlipidemia as she refused to be on medication because she said that she was always on the go. She was not control with the medical management. She also had history of diabetes and the she was on any medication. For hypertension she said she tried couple medication the past but does not recall the name of them and not sure of the side effects if she did have. She said again she was busy person and didn't want to be tied up to pills. She denies tobacco use, alcohol use or any illicit drug use. Her siblings have the history of atrial fibrillation and she was worked up for it the about 56 years ago where she had a Holter monitor for 2 weeks but was negative. She does have irregular heartbeat from time to time. Workup in the hospital consisted of: Initial vitals: Blood pressure of 197/128, heart rate of 99, respiratory of 18, temperature of 97.9 oral, pulse ox of 98% room air. CT of the head is reported as no acute intracranial hemorrhage or midline shift. No significant change from prior. Personally reviewed the CT of the head and there is no acute ischemia, hemorrhage or an encephalomalacia. CT angiography of the head and neck was reported as no significant abnormality i s seen. In the body and mentioned there is in determining nodule in the left upper lobe, possibly calcified measures only 2 mm, axial image #9. There is enlargement of the thyroid gland, extension into the superior mediastinum with heterogeneous density consisted of multinodular goiter. EKG is reported as normal sinus rhythm. Ventricular rate of 82. Normal EKG. Review of Systems Review of system: The 12 point system was reviewed and apparent positive and ne gative per HPI. Past Medical History Past Medical History: Chest Pain / Angina, Diabetes Mellitus, Hyperlipidemia, Hypertension, Memory Impairment, Osteoarthritis (OA), Pneumonia, Thyroid Disorder, Vascular Disorder Additional Past Medical History / Comment(s): diabetes-diet controlled, neuropathy feet, leg weakness on occasion, pain in neck area, tachycardia, varicose vein on left leg History of Any Multi-Drug Resistant Organisms: None Reported Past Surgical History: Back Surgery, Hysterectomy Additional Past Surgical History / Comment(s): multiple moles removed, bartholin cyst , back surgery l4-l5 Past Anesthesia/Blood Transfusion Reactions: No Reported Reaction Additional Past Anesthesia/Blood Transfusion Reaction / Comment(s): pt [employer] states does not want blood or blood products Past Psychological History: Anxiety, Bipolar, Depression Additional Psychological History / Comment(s): "not on meds right now" Smoking Status: Never smoker Past Alcohol Use History: Rare Past Drug Use History: None Reported - Past Family History Mother Family Medical History: Thyroid Disorder Additional Family Medical History / Comment(s): partial thyroidectomy Brother(s) Family Medical History: AFIB, Cancer, Deep Vein Thrombosis (DVT) Additional Family Medical History / Comment(s): irregular heart rate-cardiac ablation x3, hodkins lymphoma Sister(s) Family Medical History: Cancer Additional Family Medical History / Comment(s): stent to drain fluid on brain,esophageal,brain,breast Medications and Allergies Home Medications Medication Instructions Recorded Confirmed Type LORazepam [Ativan] 1 mg PO HS PRN 05/23/20 05/23/20 History Allergies Allergy/AdvReac Type Severity Reaction Status Date / Time codeine Allergy Swelling Verified 05/23/20 12:56 Physical Examination - Vital Signs Vital Signs: Vital Signs Temp Pulse Pulse Resp BP BP Pulse Ox 05/24/20 08:44 98.1 F 88 16 140/83 96 05/24/20 02:48 97.9 F 102 H 18 93/61 94 L 05/23/20 21:00 97.7 F 110 H 17 151/80 95 05/23/20 17:08 98 F 87 16 182/101 97 05/23/20 15:50 98.2 F 84 18 168/92 98 05/23/20 14:39 81 18 160/95 96 05/23/20 13:29 75 18 179/98 97 05/23/20 12:12 97.9 F 99 18 197/128 98 Intake and Output 05/23/20 05/24/20 05/24/20 22:59 06:59 14:59 Intake Total 600 500 Balance 600 500 Intake: Oral 600 500 Other: Voiding Method Toilet Toilet Toilet # Voids 1 1 Weight 90.718 kg GENERAL: The patient is lying in bed and is not in acute distress. CHEST: The heart rate is regular rate rhythm. No murmurs to auscultation. No carotid bruit bilaterally. LUNG: Clear to auscultation bilaterally no wheezing noted throughout. Not labored breathing. ABDOMEN/GI: Bowel sounds present in all 4 quadrants. No tenderness to palpation throughout. NEUROLOGICAL: Higher mental function: The patient is awake, alert, oriented to self, place and time. Patient is following commands. No aphasia and no neglect. Cranial nerves: The pupils are round, equal and reactive to light and a ccommodation. Visual abreu are full to confrontation throughout. Extraocular movement is intact no nystagmus is noted. Facial sensation is normal to touch throughout. The facial strength is normal throughout. Hearing is normal bilaterally to hand rub. Tongue is midline and moved [id number] without any difficulty. No dysarthria is noted. Shoulder shrug is normal bilaterally. Motor: Gait is normal with normal arm swing. The strength is 5 over 5 throughout. Normal tone and bulk. Cerebellum: Normal finger to nose and heel to sidhu bilaterally. Sensation: Sensation is normal to touch throughout. Reflexes (right/left): 2+ Plantars are downgoing bilaterally. Results Glucose serum 119. AST of 24 ALT of 24. Lipid profile triglycerides 105, cholesterol 261, LDL of 167 and HDL of 53. TSH of 0.4-4 and a free T4 is 1.21. UA was negative for urinary tract infection - Laboratory Findings CBC and BMP: 05/24/20 06:22 05/24/20 06:22 Abnormal Lab Findings: Abnormal Labs 05/23/20 05/23/20 05/23/20 13:06 14:19 18:22 Sodium Chloride 108 H Carbon Dioxide Creatinine 0.47 L Glucose 119 H POC Glucose (mg/dL) 128 H Triglycerides Cholesterol LDL Cholesterol, Calc TSH 0.424 L Ur Specific [place] 1.038 H 05/24/20 05/24/20 06:22 06:22 Sodium 132 L Chloride Carbon Dioxide 21 L Creatinine Glucose 133 H POC Glucose (mg/dL) Triglycerides 205 H Cholesterol 261 H LDL Cholesterol, Calc 167 H TSH Ur Specific [place] Assessment and Plan Assessment: 64-year-old woman with history of hypertension hyperlipidemia and diabe [place] to last 3-4 years and she is not on any medication presented emergency department on 05/23/2020 for the feeling wobbly, blurry vision out of the right eye and feel nauseous. On presentation the hospital her blood pressure was in the high 190s systolic. Currently she feels much better after her blood pressure came down. Acute ataxia, blurry vision on the right eye and nausea is due to uncontrolled hypertension. She does not have a stroke or TIA Uncontrolled Hypertension Uncontrolled Hyperlipidemia Diabetes mellitus Hypothyroidism Plan: MRI the brain: No MRI evidence for recent infarct. I personally reviewed the my the brain and there is no acute or subacute ischemia seen. CT angiography of the head and neck is unremarkable 2-D echo is pending Lipid profile triglycerides 105, cholesterol 261, LDL of 167 and HDL of 53. -I'll place the patient on Lipitor 40 mg daily. She was notified of the side effects and she was encouraged of taking the medication. -From a neurology perspective the patient did not have a stroke or a transient ischemic attack, her symptoms are likely due to a uncontrolled hypertension. From my point it doesn't hurt for her to be on aspirin 81 mg as a prophylaxis especially with her risk factors but I will defer to the primary team. Will repeat the hemoglobin A1c Continue cardiac monitoring PT, OT are consulted. She was also notified that I encouraged that she gets a loop recorder or a longer Holter monitor for atrial fibrillation especially with family history of the atrial fibrillation and that she has sensation of palpation time to time. Regarding the patient and controlled hypertension recommend slowly controlling the blood pressure down not more than 15-20% in 24 hours. To avoid the ischemia. Patient was encouraged to the take her medication to control her hypertension and hyperlipidemia as well as the to get her diabetes under control Regarding the patient hypothyroidism and the multiply the nodular goiter I'll defer the management to the primary team. I'll defer the rest of the medical management to the primary team. Thank you for the consultation. Onel Luna M.D. Neuro-hospitalist Time with Patient: Greater than 30
--- NOTE | 2020-05-24 12:22 | P.DS ---
Providers Date of admission: 05/23/20 15:32 Expected date of discharge: 05/24/20 Attending physician: Enrico Vizcaino Consults: 05/23/20 15:32 Consult Physician Urgent Consulting Provider: Onel Luna Consult Reason/Comments: acute ataxia Do you want consulting provider notified?: Yes [facility]: 63-year-old female one of Dr. Boswell patient with past medical history of diet-controlled diabetes, hypertension not controlled, hyperlipidemia, hypothyroidism and mild cognitive impairment who presented to the emergency department at [facility] today complaining of severe ataxia with off balance and gait started early this morning and not been able to control her symptom with patient was trying to walk to the bathroom when she had severe abnormal balancing gait become quite bit lightheaded and dizzy without passing out had significant blurred vision along with nausea with no vomiting also developed to have numbness in both upper extremity more than the right than the left side without any speech abnormality slight change in vision. Patient apparently was diagnosed with blood pressure problem long time ago has not been on any medication and whenever it's prescribed patient decided to control her symptom with natural products only. With presentation to demurs department her blood pressure was running over 170/95 with pulse rate mildly rapid at the time with normal pulse ox. Testing at day ED consistent with brain CT showed small vessel disease with no intracranial hemorrhage or abnormality. CTA of the neck came back with no significant stenosis with no blockage or abnormality. When patient attempted to stand up and walk had severe ataxia and developed severe nystagmus was not able to ambulate and walk ended up being hospitalized for the above problem. MRI of the brain was order and patient will be seen neurology. 05/24: MRI of the brain did not show any evidence of recent infarct. Echocardiogram reveals EF of 60-65%. Patient has been seen by neurology with recommendations for Lipitor 40 mg daily, aspirin 81 mg daily and Holter monitor to rule out atrial fibrillation with family history of A. fib. Possible hypothyroidism will be addressed at PCP office. She has been afebrile, heart rate 88, blood pressure 140/83, pulse ox 96% on room air. Patient received 1 dose of amlodipine 5 mg in the emergency center and one dose of IV hydralazine last evening. Even monitor will be arranged prior to discharge. Patient will be discharged home today in stable condition. Discharge diagnoses: 1 acute ataxia, blurred vision and nausea secondary to uncontrolled hypertension. CVA and TIA ruled out. 2 severe abnormal ataxia imbalance and gait 3 emergency hypertension 4 hyperglycemia/type 2 diabetes. A1c is pending. 5 hyperlipidemia 6 recurrent angina and chest pain with no major heart disease 7 mild PAD Discharge plan: Home Impression and plan of care have been directed as dictated by the signing physician. Ashley Obregon nurse practitioner acting as scribe for signing physician. Patient Condition at Discharge: Good Plan - Discharge Summary Discharge Rx Participant: Yes New Discharge Prescriptions: New Atorvastatin [Lipitor] 40 mg PO HS #30 tab amLODIPine [Norvasc] 5 mg PO DAILY #30 tab Continue LORazepam [Ativan] 1 mg PO HS PRN PRN Reason: Anxiety Discharge Medication List LORazepam [Ativan] 1 mg PO HS PRN 05/23/20 [History] Atorvastatin [Lipitor] 40 mg PO HS #30 tab 05/24/20 [Rx] amLODIPine [Norvasc] 5 mg PO DAILY #30 tab 05/24/20 [Rx] Follow up Appointment(s)/Referral(s): Jet Boswell DO [Primary Care Provider] - 1 Week (Please make appointment within a week.) Discharge Disposition: HOME SELF-CARE
[2020-05-24 20:38] LABS: Hemoglobin A1C 7.4 % (4.0-6.0)
[2020-05-24] MEDS ORDERED: ATORVASTATIN 40 MG TAB PO SCH (21:00)
== END 2020-05-24 14:12 | disposition home or self-care (01) ==
LOC: EC 12:11 → 1SOBS 15:32
PROVIDERS: ADMIT Internal Medicine Geriatric Medicine; ATTEND Internal Medicine Geriatric Medicine
DX: I10 Essential (primary) hypertension (principal); R27.0 Ataxia, unspecified; E03.9 Hypothyroidism, unspecified; E04.2 Nontoxic multinodular goiter; E11.40 Type 2 diabetes mellitus with diabetic neuropathy, unspecified; E11.51 Type 2 diabetes mellitus with diabetic peripheral angiopathy without gangrene; E11.65 Type 2 diabetes mellitus with hyperglycemia; E78.5 Hyperlipidemia, unspecified; F31.9 Bipolar disorder, unspecified; F41.9 Anxiety disorder, unspecified; G45.0 Vertebro-basilar artery syndrome; H55.00 Unspecified nystagmus; I49.9 Cardiac arrhythmia, unspecified; Z79.82 Long term (current) use of aspirin; Z79.899 Other long term (current) drug therapy; Z82.49 Family history of ischemic heart disease and other diseases of the circulatory system
CPT/HCPCS: 96374; 96375; 99285; 36415; 93005; 93306; 93270; 97161; 97165; 84439; 80061; 80053; 80048; 84443; 83605; 84484; 85025 ×2; 81003; 83036; 70496; 70450; 70498; 70551; G0378 ×2; J0360; J2405; Q9967

== ENCOUNTER → 2021-04-25 | Outpatient (CLI) | payer BC ==
--- NOTE | 2021-04-25 10:45 | BD ---
EXAMINATION TYPE: Axial Bone Density DATE OF EXAM: 04/25/2021 COMPARISON: NONE CLINICAL HISTORY: Height: 5 FT 8 IN Weight: 200 FRAX RISK QUESTIONS: Alcohol (3 or more units per day): NO Family History (Parent hip fracture): NO Glucocorticoids (More than 3mos): NO (Ex: prednisone, prednisolone, methylprednisolone, dexamethasone, and hydrocortisone). History of Fracture in Adulthood: NO Secondary Osteoporosis: 1. Type 1 Diabetes: TYPE 2 2. Hyperthyroidism: NO 3. Menopause before 45: NO 4. Malnutrition: NO 5. Chronic liver disease: NO Rheumatoid Arthritis: NO Current Tobacco Use: NO RISK FACTORS HISTORY OF: Surgery to Spine/Hip(right/left)/Wrist (right/left): LUMBAR SURG When: IN HER 30'S Family History of Osteoporosis: NO Active: YES Diet low in dairy products/other sources of calcium: NO Postmenopausal woman: PART HYST IN HER 20'S Take estrogen and/or progesterone medications: TOOK HRT FOR A LITTLE WHILE Lost more than 2 inches in height since high school: YES MEDICATIONS: Additional Medications: ELOQIS, NORVASC, Additional History: CURRENTLY ON A HEART MONITOR, EXAM MEASUREMENTS: Bone mineral densitometry was performed using the [employer] System. Bone mineral density as measured about the Lumbar spine is: ----- L1-L4(G/cm2): 1.315 T Score Values are as follows: ----- L2: 1.5 ----- L3: 1.9 ----- L4: 0.6 ----- L1-L4: 1.1 Bone mineral density has: INCREASED 1.7 % since study of: 2018 Bone mineral density about the R hip (g/cm2): 0.804 Bone mineral density about the L hip (g/cm2): 0.811 T Score values are as follows: -----R Neck: -1.7 -----L Neck: -1.6 -----R Total: -0.8 -----L Total: -0.9 Bone mineral density has: DECREASED -1.7 % since study of: 2018 IMPRESSION: No evidence for osteoporosis or osteopenia. NOTE: T-SCORE=SD OF THE YOUNG ADULT MEAN.
--- NOTE | 2021-04-25 14:06 | XR ---
Bilateral hips HISTORY: M25.552,M25.551,M54.5 2 views of each hip submitted Bone mineralization, joint spaces and alignment are maintained on the left. Question some mild remode ling of the right femoral head, concentric joint space loss. No fracture or dislocation. IMPRESSION: Consider mild osteoarthritis, femoral acetabular impingement
--- NOTE | 2021-04-25 14:07 | XR ---
Lumbosacral spine HISTORY: M25.552,M25.551,M54.5 5 views of the lumbosacral spine There is no evident spondylolysis or spondylolisthesis. Multilevel spondylosis is present. Loss of di sc height is present at the intervertebral levels. Sclerosis present in the posterior elements of the lower lumbar spine. Lumbar vertebral bodies show preserved height, bone mineralization is reduced. A therosclerotic vascular calcifications present in the aortoiliac distribution. IMPRESSION: Degenerative disc disease, facet arthropathy, osteopenia
--- NOTE | 2021-04-26 12:08 | MM ---
Reason for exam: screening (asymptomatic). Last mammogram was performed 1 year and 8 months ago. History: Patient is postmenopausal. Family history of premenopausal breast cancer in sister at age 36 and premenopausal breast cancer in sister at age 50. Benign stereotactic core biopsy of the right breast, August 06, 2002. Cyst aspiration of the right breast. Core biopsy of the right breast. Took estrogen for 14 years. Took other hormone for 2 years. Physical Findings: A clinical breast exam by your physician is recommended on an annual basis and results should be correlated with mammographic findings. MG 3D Screening Mammo W/Cad Bilateral CC and MLO view(s) were taken. XCCL view(s) were taken of the right breast. Prior study comparison: August 26, 2019, bilateral MG 3d screening mammo w/cad. August 03, 2018, bilateral MG 3d screening mammo w/cad. There are scattered fibroglandular densities. Stable benign calcifications. There is no discrete abnormality. No significant changes when compared with prior studies. ASSESSMENT: Benign, BI-RAD 2 RECOMMENDATION: Routine screening mammogram of both breasts in 1 year.
== END | disposition home or self-care (01) ==
LOC: RADMAMWWP 08:23
PROVIDERS: ATTEND Family Medicine
DX: Z12.31 Encounter for screening mammogram for malignant neoplasm of breast (principal); M85.89 Other specified disorders of bone density and structure, multiple sites; Z78.0 Asymptomatic menopausal state; Z80.3 Family history of malignant neoplasm of breast; M16.0 Bilateral primary osteoarthritis of hip; M47.816 Spondylosis without myelopathy or radiculopathy, lumbar region; M51.36 Other intervertebral disc degeneration, lumbar region
CPT/HCPCS: 72110; 73521; 77063; 77067; 77080

== ENCOUNTER 2021-05-16 12:35 | Emergency (ER) | payer BC ==
[2021-05-16 12:57] VITALS: TEMP 97.6
[2021-05-16 13:45] VITALS: RESP 18
--- NOTE | 2021-05-16 13:49 | ED ---
General Adult HPI - General Chief complaint: Recheck/Abnormal Lab/Rx Stated complaint: Hypertensive, Dizziness Time Seen by Provider: 05/16/21 12:35 Source: patient, RN notes reviewed, old records reviewed Mode of arrival: ambulatory Limitations: no limitations - History of Present Illness Initial comments: This is a 65-year-old female presents emergency Department complaining that she had a near syncopal episode last night and again another event today. Patient states when it occurs she states her vision gets blurry and she feels like she might pass out. Patient states she gets a warm sensation all of her body and often times when this occurs she gets the feeling her heart is racing. Patient states she went to an urgent care and they told her blood pressure was extremely high and she needed to go the emergency department immediately. Patient states this has occurred in the past that she is seeing cardiology for petechia figure out what is going on. Patient denies any chest pain or difficulty breathing. Patient currently states she is symptom-free. Patient denies any recent fever chills or cough per patient denies abdominal pain patient denies nausea vomiting diarrhea. Patient states his symptoms have been on and off for close to 5 years - Related Data Home Medications Medication Instructions Recorded Confirmed LORazepam [Ativan] 0.5 - 1 mg PO HS PRN 05/23/20 05/16/21 Apixaban [Eliquis] 5 mg PO BID 05/16/21 05/16/21 metFORMIN HCL 1,000 mg PO PC-SUPPER 05/16/21 05/16/21 Previous Rx's Medication Instructions Recorded amLODIPine [Norvasc] 5 mg PO DAILY #30 tab 05/24/20 Allergies Allergy/AdvReac Type Severity Reaction Status Date / Time codeine Allergy Swelling Verified 05/16/21 13:52 Review of Systems ROS Statement: Those systems with pertinent positive or pertinent negative responses have been documented in the HPI. ROS Other: All systems not noted in ROS Statement are negative. Past Medical History Past Medical History: Diabetes Mellitus, Hyperlipidemia, Hypertension, Osteoarthritis (OA), Thyroid Disorder Additional Past Medical History / Comment(s): diabetes-diet controlled, neuropathy feet, leg weakness on occasion, pain in neck area History of Any Multi-Drug Resistant Organisms: None Reported Past Surgical History: Back Surgery, Hysterectomy Additional Past Surgical History / Comment(s): multiple moles removed, bartholin cyst , back surgery l4-l5 Past Anesthesia/Blood Transfusion Reactions: No Reported Reaction Additional Past Anesthesia/Blood Transfusion Reaction / Comment(s): pt Moravian states does not want blood or blood products Past Psychological History: Depression Past Alcohol Use History: Rare Past Drug Use History: None Reported - Past Family History Mother Family Medical History: Thyroid Disorder Additional Family Medical History / Comment(s): partial thyroidectomy Brother(s) Family Medical History: Deep Vein Thrombosis (DVT) Additional Family Medical History / Comment(s): irregular heart rate-cardiac ablation x3 Sister(s) Family Medical History: Cancer Additional Family Medical History / Comment(s): stent to drain fluid on brain ,esophageal,brain,breast General Exam - General Exam Comments Initial Comments: GENERAL: Patient is well-developed and well-nourished. Patient is nontoxic and well- hydrated and is in mild distress. ENT: Neck is soft and supple. No significant lymphadenopathy is noted. Oropharynx is clear. Moist mucous membranes. Neck has full range of motion without eliciting any pain. EYES: The sclera were anicteric and conjunctiva were pink and moist. Extraocular movements were intact and pupils were equal round and reactive to light. Eyelids were unremarkable. PULMONARY: Unlabored respirations. Good breath sounds bilaterally. No audible rales rhonchi or wheezing was noted. CARDIOVASCULAR: There is a regular rate and rhythm without any murmurs gallops or rubs. ABDOMEN: Soft and nontender with normal bowel sounds. SKIN: Skin is clear with no lesions or rashes and otherwise unremarkable. NEUROLOGIC: Patient is alert and oriented x3. Cranial nerves II through XII are grossly intact. Motor and sensory are also intact. Normal speech, volume and content. Symmetrical smile. MUSCULOSKELETAL: Normal extremities with adequate strength and full range of motion. No lower extremity swelling or edema. No calf tenderness. LYMPHATICS: No significant lymphadenopathy is noted PSYCHIATRIC: Normal psychiatric evaluation. Limitations: no limitations Course Vital Signs 05/16/21 05/16/21 05/16/21 12:54 13:38 14:30 Temperature 97.6 F Pulse Rate 84 74 Pulse Rate [ 78 Sitting] Pulse Rate [ 89 Standing] Pulse Rate [ 80 Supine] Respiratory 19 18 18 Rate Blood Pressure 145/84 168/97 Blood Pressure 158/90 [Sitting] Blood Pressure 168/97 [Standing] Blood Pressure 148/82 [Supine] O2 Sat by Pulse 97 98 95 Oximetry 05/16/21 15:00 Temperature Pulse Rate 73 Pulse Rate [ Sitting] Pulse Rate [ Standing] Pulse Rate [ Supine] Respiratory 18 Rate Blood Pressure 158/95 Blood Pressure [Sitting] Blood Pressure [Standing] Blood Pressure [Supine] O2 Sat by Pulse 96 Oximetry Medical Decision Making - Medical Decision Making Chest x-ray shows no acute abnormality. Patient was a symptomatic throughout her ED course. I suggested the patient stay but she did not want to stay in the hospital she stated she already had a cardiology appointment under a week and she states she won't drive and her always be with her so she feels comfortable going home because this is been ongoing for close to 5 years. - Lab Data Result diagrams: 05/16/21 14:07 05/16/21 13:48 Lab Results 05/16/21 05/16/21 05/16/21 Range/Units 13:48 13:48 13:48 WBC (3.8-10.6) k/uL RBC (3.80-5.40) m/uL Hgb (11.4-16.0) gm/dL Hct (34.0-46.0) % MCV (80.0-100.0) fL MCH (25.0-35.0) pg MCHC (31.0-37.0) g/dL RDW (11.5-15.5) % Plt Count (150-450) k/uL MPV Neutrophils % % Lymphocytes % % Monocytes % % Eosinophils % % Basophils % % Neutrophils # (1.3-7.7) k/uL Lymphocytes # (1.0-4.8) k/uL Monocytes # (0-1.0) k/uL Eosinophils # (0-0.7) k/uL Basophils # (0-0.2) k/uL PT 10.5 (9.0-12.0) sec INR 1.0 (<1.2) APTT 23.3 (22.0-30.0) sec Sodium 135 L (137-145) mmol/L Potassium 4.6 (3.5-5.1) mmol/L Chloride 102 (98-107) mmol/L Carbon Dioxide 25 (22-30) mmol/L Anion Gap 8 mmol/L BUN 16 (7-17) mg/dL Creatinine 0.62 (0.52-1.04) mg/dL Est GFR (CKD-EPI)AfAm >90 (>60 ml/min/1.73 sqM) Est GFR (CKD-EPI)NonAf >90 (>60 ml/min/1.73 sqM) Glucose 113 H (74-99) mg/dL Calcium 9.4 (8.4-10.2) mg/dL Magnesium 2.0 (1.6-2.3) mg/dL Total Bilirubin 0.4 (0.2-1.3) mg/dL AST 24 (14-36) U/L ALT 21 (4-34) U/L Alkaline Phosphatase 88 (38-126) U/L Troponin I <0.012 (0.000-0.034) ng/mL Total Protein 7.0 (6.3-8.2) g/dL Albumin 4.0 (3.5-5.0) g/dL Coronavirus (PCR) (Not Detectd) 05/16/21 05/16/21 Range/Units 14:07 14:07 WBC 8.8 (3.8-10.6) k/uL RBC 4.94 (3.80-5.40) m/uL Hgb 13.5 (11.4-16.0) gm/dL Hct 43.0 (34.0-46.0) % MCV 87.0 (80.0-100.0) fL MCH 27.4 (25.0-35.0) pg MCHC 31.5 (31.0-37.0) g/dL RDW 13.6 (11.5-15.5) % Plt Count 293 (150-450) k/uL MPV 7.3 Neutrophils % 64 % Lymphocytes % 28 % Monocytes % 4 % Eosinophils % 1 % Basophils % 0 % Neutrophils # 5.6 (1.3-7.7) k/uL Lymphocytes # 2.5 (1.0-4.8) k/uL Monocytes # 0.4 (0-1.0) k/uL Eosinophils # 0.1 (0-0.7) k/uL Basophils # 0.0 (0-0.2) k/uL PT (9.0-12.0) sec INR (<1.2) APTT (22.0-30.0) sec Sodium (137-145) mmol/L Potassium (3.5-5.1) mmol/L Chloride (98-107) mmol/L Carbon Dioxide (22-30) mmol/L Anion Gap mmol/L BUN (7-17) mg/dL Creatinine (0.52-1.04) mg/dL Est GFR (CKD-EPI)AfAm (>60 ml/min/1.73 sqM) Est GFR (CKD-EPI)NonAf (>60 ml/min/1.73 sqM) Glucose (74-99) mg/dL Calcium (8.4-10.2) mg/dL Magnesium (1.6-2.3) mg/dL Total Bilirubin (0.2-1.3) mg/dL AST (14-36) U/L ALT (4-34) U/L Alkaline Phosphatase (38-126) U/L Troponin I (0.000-0.034) ng/mL Total Protein (6.3-8.2) g/dL Albumin (3.5-5.0) g/dL Coronavirus (PCR) Not Detected (Not Detectd) Disposition Clinical Impression: Near syncope Disposition: HOME SELF-CARE Instructions (If sedation given, give patient instructions): Near Syncope (ED) Is patient prescribed a controlled substance at d/c from ED?: No Referrals: Jet Boswell DO [Primary Care Provider] - 1-2 days Time of Disposition: 15:24
[2021-05-16 14:16] LABS: Basophils % (A) 0 %; Eosinophils # (A) 0.1 k/uL (0-0.7); Eosinophils % (A) 1 %; HGB 13.5 gm/dL (11.4-16.0); Lymphocytes # (A) 2.5 k/uL (1.0-4.8); Lymphocytes % (A) 28 %; MCH 27.4 pg (25.0-35.0); MCHC 31.5 g/dL (31.0-37.0); Mean Platelet Volume 7.3; Monocytes # (A) 0.4 k/uL (0-1.0); Monocytes % (A) 4 %; Neutrophils # (A) 5.6 k/uL (1.3-7.7); Neutrophils % (A) 64 %; Platelet Count 293 k/uL (150-450); RBC 4.94 m/uL (3.80-5.40); RDW 13.6 % (11.5-15.5); WBC 8.8 k/uL (3.8-10.6)
[2021-05-16 14:26] LABS: Partial Thromboplastin Time 23.3 sec (22.0-30.0); Prothrombin Time 10.5 sec (9.0-12.0)
--- NOTE | 2021-05-16 14:33 | XR ---
EXAMINATION TYPE: XR chest 2V DATE OF EXAM: 05/16/2021 COMPARISON: 08/26/2019 HISTORY: Shortness of breath TECHNIQUE: Frontal and lateral views of the chest are obtained. FINDINGS: Scattered senescent parenchymal changes noted. Hyperinflation compatible with COPD. No evidence for infiltrate. No evidence for atelectasis. Heart size is stable. Mediastinal structures are stable and grossly unremarkable. No evidence for hilar prominence. Degenerative changes dorsal spine. IMPRESSION: 1. No evidence for acute pulmonary disease.
[2021-05-16 14:34] LABS: ALT 21 U/L (4-34); AST 24 U/L (14-36); African American GFR (CKD) >90 (>60 ml/min/1.73 sqM); Alkaline Phosphatase 88 U/L (38-126); Anion Gap 8 mmol/L; Blood Urea Nitrogen 16 mg/dL (7-17); Calcium 9.4 mg/dL (8.4-10.2); Carbon Dioxide 25 mmol/L (22-30); Chloride 102 mmol/L (98-107); Glucose 113 mg/dL (74-99); Non-African American GFR(CKD) >90 (>60 ml/min/1.73 sqM); Potassium 4.6 mmol/L (3.5-5.1); Sodium 135 mmol/L (137-145); Total Bilirubin 0.4 mg/dL (0.2-1.3)
[2021-05-16 15:11] VITALS: BP 158/95; PULSE 73
== END 2021-05-16 15:34 | disposition home or self-care (01) ==
LOC: EC 12:35
DX: R55 Syncope and collapse (principal); E11.40 Type 2 diabetes mellitus with diabetic neuropathy, unspecified; I10 Essential (primary) hypertension; E78.5 Hyperlipidemia, unspecified; M19.90 Unspecified osteoarthritis, unspecified site; F32.9 Major depressive disorder, single episode, unspecified; Z79.01 Long term (current) use of anticoagulants; Z79.84 Long term (current) use of oral hypoglycemic drugs; Z79.899 Other long term (current) drug therapy; Z88.5 Allergy status to narcotic agent
CPT/HCPCS: 36415; 71046; 80053; 83735; 84484; 85025; 85610; 85730; 87635; 93005; 99284

== ENCOUNTER 2023-02-23 10:01 | Observation (INO) | payer MEDICARE ==
[2023-02-23] MEDS ORDERED: SODIUM CHLORIDE 0.9% 500 ML 500 ML IV STA (10:19)
[2023-02-23] MEDS ORDERED: ASPIRIN 81 MG PO STA (10:19)
[2023-02-23] MEDS ORDERED: SODIUM CHLORIDE 0.9% 1,000 ML IV STA (10:19)
[2023-02-23] MEDS ORDERED: DILTIAZEM DRIP BOLUS FROM BAG 1 MG SOLN IV ONE (10:19)
--- NOTE | 2023-02-23 10:25 | ED ---
Arrhythmia/Palpitations HPI - General Chief Complaint: Arrhythmia/Palpitations Stated Complaint: AFib Time Seen by Provider: 02/23/23 10:08 Source: patient, RN notes reviewed Mode of arrival: ambulatory Limitations: no limitations - History of Present Illness Initial Comments: 67-year-old female history of atrial fibrillation and diabetes hypothyroidism who had a cardiac ablation done 4 days ago at [facility] in [facility] for atrial fibrillation. Patient states that she converted to a sinus rhythm and did not eat her medications but about 1 hour prior to arrival here she started developing palpitations again and feeling as if she was back in atrial fibrillation she felt lightheaded and dizzy no overt chest pain no shortness of breath. She is feeling anxious. No other associated complaints MD Complaint: palpitations, irregular heart beat, atrial fibrillation - Related Data Home Medications Medication Instructions Recorded Confirmed LORazepam [Ativan] 0.5 - 1 mg PO HS PRN 05/23/20 05/16/21 Apixaban [Eliquis] 5 mg PO BID 05/16/21 05/16/21 metFORMIN HCL 1,000 mg PO PC-SUPPER 05/16/21 05/16/21 Previous Rx's Medication Instructions Recorded amLODIPine [Norvasc] 5 mg PO DAILY #30 tab 05/24/20 Allergies Allergy/AdvReac Type Severity Reaction Status Date / Time codeine Allergy Swelling Verified 05/16/21 13:52 Review of Systems ROS Statement: Those systems with pertinent positive or pertinent negative responses have been documented in the HPI. ROS Other: All systems not noted in ROS Statement are negative. Past Medical History Past Medical History: Diabetes Mellitus, Hyperlipidemia, Hypertension, Osteoarthritis (OA), Thyroid Disorder Additional Past Medical History / Comment(s): diabetes-diet controlled, neuropathy feet, leg weakness on occasion, pain in neck area History of Any Multi-Drug Resistant Organisms: None Reported Past Surgical History: Back Surgery, Hysterectomy Additional Past Surgical History / Comment(s): multiple moles removed, bartholin cyst , back surgery l4-l5 Past Anesthesia/Blood Transfusion Reactions: No Reported Reaction Additional Past Anesthesia/Blood Transfusion Reaction / Comment(s): pt Shinto states does not want blood or blood products Past Psychological History: Depression Past Alcohol Use History: Rare Past Drug Use History: None Reported - Past Family History Mother Family Medical History: Thyroid Disorder Additional Family Medical History / Comment(s): partial thyroidectomy Brother(s) Family Medical History: Deep Vein Thrombosis (DVT) Additional Family Medical History / Comment(s): irregular heart rate-cardiac ablation x3 Sister(s) Family Medical History: Cancer Additional Family Medical History / Comment(s): stent to drain fluid on brain,esophageal,brain,breast General Exam - General Exam Comments Initial Comments: This is a well-developed well-nourished awake alert oriented 4 female Limitations: no limitations General appearance: alert, anxious Head exam: Present: atraumatic, normocephalic, normal inspection Eye exam: Present: normal appearance, PERRL, EOMI. Absent: scleral icterus, conjunctival injection, periorbital swelling ENT exam: Present: mucous membranes dry Neck exam: Present: normal inspection, full ROM, other (No stridor JVD or bruits). Absent: tenderness, meningismus, lymphadenopathy Respiratory exam: Present: normal lung sounds bilaterally. Absent: respiratory distress, wheezes, rales, rhonchi, stridor Cardiovascular Exam: Present: tachycardia, irregular rhythm. Absent: systolic murmur, diastolic murmur, rubs, gallop, clicks GI/Abdominal exam: Present: soft, normal bowel sounds. Absent: distended, tenderness, guarding, rebound, rigid, bruit, pulsatile mass Extremities exam: Present: normal inspection, full ROM, normal capillary refill. Absent: tenderness, pedal edema, joint swelling, calf tenderness Back exam: Present: normal inspection Neurological exam: Present: alert, oriented X3, CN II-XII intact Psychiatric exam: Present: normal affect, normal mood Skin exam: Present: warm, dry, intact, normal color. Absent: rash Course Vital Signs 02/23/23 02/23/23 10:04 10:15 Temperature 98 F Pulse Rate 100 125 H Respiratory 18 22 Rate Blood Pressure 208/74 188/106 O2 Sat by Pulse 96 Oximetry Medical Decision Making - Medical Decision Making Did discuss the findings with patient family members also with Dr. Hernandez covering the cardiology service that way and [facility] in [facility] patient will be admitted to this facility continue with her current medications and cardiology consultation case discussed with the [facility], Dr. Brown's group. Patient did have a headache which is improving after medication. No evidence of any neurological sequela. The patient's elevated troponin is likely secondary to the procedure done 4 days ago. This was also discussed with Dr. Hernandez. Was pt. sent in by a medical professional or institution (, MARSHA, MELT SUPERVISOR, urgent care, hospital, or assisted...) When possible be specific @ -No Did you speak to anyone other than the patient for history (EMS, parent, family, police, friend...)? What history was obtained from this source @ -Family Did you review nursing and triage notes (agree or disagree)? Why? @ -I reviewed and agree with nursing and triage notes Were old charts reviewed (outside hosp., previous admission, EMS record, old EKG, old radiological studies, urgent care reports/EKG's, assisted records)? Report findings @ -No old charts were reviewed Differential Diagnosis (chest pain, altered mental status, abdominal pain women, abdominal pain men, vaginal bleeding, weakness, fever, dyspnea, syncope, headache, dizziness, GI bleed, back pain, seizure, CVA, palpatations, mental health, musculoskeletal)? @ -Rapid atrial fibrillation, palpitations EKG interpreted by me (3pts min.). @ -As above initial EKG upon arrival with rapid atrial fibrillation rate 122 QRS 84 QT/QTC to a 286/358 with evidence of right axis deviation. The postconversion EKG demonstrated a sinus rhythm of 87 MS interval 1:30 QRS duration 81 QT/QTC 348/393 Indication. X-rays interpreted by me (1pt min.). @ -Imaging demonstrated no acute process interpreted by me CT interpreted by me (1pt min.). @ -None done U/S interpreted by me (1pt. min.). @ -None done What testing was considered but not performed or refused? (CT, X-rays, U/S, labs)? Why? @ -None What meds were considered but not given or refused? Why? @ -None Did you discuss the management of the patient with other professionals (professionals i.e. , MARSHA, MELT SUPERVISOR, lab, RT, psych nurse, social media assistant, organizational consultant, teacher, public information officer, complex case manager)? Give summary @ -Dr. Brown Was smoking cessation discussed for >3mins.? @ -No Was critical care preformed (if so, how long)? @ -45 minutes which included multiple reevaluation the patient multiple conversations with family also conversation with cardiology at [facility] in [facility] Were there social determinants of health that impacted care today? How? (Homelessness, low income, unemployed, alcoholism, drug addiction, transportation, low edu. Level, literacy, decrease access to med. care, fci, rehab)? @ -No Was there de-escalation of care discussed even if they declined (Discuss DNR or withdrawal of care, Hospice)? DNR status @ -No What co-morbidities impacted this encounter? (DM, HTN, Smoking, COPD, CAD, Cancer, CVA, ARF, Chemo, Hep., AIDS, mental health diagnosis, sleep apnea, morbid obesity)? @ -Hypertension, history of A. fib Was patient admitted / discharged? Hospital course, mention meds given and route, prescriptions, significant lab abnormalities, going to OR and other pertinent info. @ -hospital course the patient was admitted for further evaluation and cardiology consultation Undiagnosed new problem with uncertain prognosis? @ -No Drug Therapy requiring intensive monitoring for toxicity (Heparin, Nitro, Insulin, Cardizem)? @ -Yes, Cardizem Were any procedures done? @ -No Diagnosis/symptom? @ -Rapid atrial fibrillation, elevated troponin, hypertension, headache Acute, or Chronic, or Acute on Chronic? @ -Acute on chronic Uncomplicated (without systemic symptoms) or Complicated (systemic symptoms)? @ -Complicated Side effects of treatment? @ -No Exacerbation, Progression, or Severe Exacerbation? @ -Exacerbation Poses a threat to life or bodily function? How? (Chest pain, USA, NM, pneumonia, PE, COPD, DKA, ARF, appy, cholecystitis, CVA, Diverticulitis, Homicidal, Suicidal, threat to staff... and all critical care pts) @ -Yes, Rapid atrial fibrillation - Lab Data Result diagrams: 02/23/23 10:31 02/23/23 10:31 Lab Results 02/23/23 02/23/23 02/23/23 Range/Units 10:31 10:31 10:31 WBC 8.9 (3.8-10.6) k/uL RBC 4.80 (3.80-5.40) m/uL Hgb 13.7 (11.4-16.0) gm/dL Hct 41.5 (34.0-46.0) % MCV 86.4 (80.0-100.0) fL MCH 28.6 (25.0-35.0) pg MCHC 33.1 (31.0-37.0) g/dL RDW 13.6 (11.5-15.5) % Plt Count 227 (150-450) k/uL MPV 8.5 Neutrophils % 54 % Lymphocytes % 36 % Monocytes % 6 % Eosinophils % 2 % Basophils % 0 % Neutrophils # 4.8 (1.3-7.7) k/uL Lymphocytes # 3.2 (1.0-4.8) k/uL Monocytes # 0.5 (0-1.0) k/uL Eosinophils # 0.2 (0-0.7) k/uL Basophils # 0.0 (0-0.2) k/uL PT 10.7 (9.0-12.0) sec INR 1.0 (<1.2) APTT 23.2 (22.0-30.0) sec Sodium 134 L (137-145) mmol/L Potassium 3.9 (3.5-5.1) mmol/L Chloride 103 (98-107) mmol/L Carbon Dioxide 20 L (22-30) mmol/L Anion Gap 11 mmol/L BUN 14 (7-17) mg/dL Creatinine 0.56 (0.52-1.04) mg/dL Est GFR (CKD-EPI)AfAm >90 (>60 ml/min/1.73 sqM) Est GFR (CKD-EPI)NonAf >90 (>60 ml/min/1.73 sqM) Glucose 293 H (74-99) mg/dL Calcium 9.9 (8.4-10.2) mg/dL Magnesium 1.6 (1.6-2.3) mg/dL Total Bilirubin 0.7 (0.2-1.3) mg/dL AST 21 (14-36) U/L ALT 21 (4-34) U/L Alkaline Phosphatase 88 (38-126) U/L Troponin I (0.000-0.034) ng/mL Total Protein 7.1 (6.3-8.2) g/dL Albumin 4.0 (3.5-5.0) g/dL TSH 0.096 L (0.465-4.680) mIU/L 02/23/23 Range/Units 10:31 WBC (3.8-10.6) k/uL RBC (3.80-5.40) m/uL Hgb (11.4-16.0) gm/dL Hct (34.0-46.0) % MCV (80.0-100.0) fL MCH (25.0-35.0) pg MCHC (31.0-37.0) g/dL RDW (11.5-15.5) % Plt Count (150-450) k/uL MPV Neutrophils % % Lymphocytes % % Monocytes % % Eosinophils % % Basophils % % Neutrophils # (1.3-7.7) k/uL Lymphocytes # (1.0-4.8) k/uL Monocytes # (0-1.0) k/uL Eosinophils # (0-0.7) k/uL Basophils # (0-0.2) k/uL PT (9.0-12.0) sec INR (<1.2) APTT (22.0-30.0) sec Sodium (137-145) mmol/L Potassium (3.5-5.1) mmol/L Chloride (98-107) mmol/L Carbon Dioxide (22-30) mmol/L Anion Gap mmol/L BUN (7-17) mg/dL Creatinine (0.52-1.04) mg/dL Est GFR (CKD-EPI)AfAm (>60 ml/min/1.73 sqM) Est GFR (CKD-EPI)NonAf (>60 ml/min/1.73 sqM) Glucose (74-99) mg/dL Calcium (8.4-10.2) mg/dL Magnesium (1.6-2.3) mg/dL Total Bilirubin (0.2-1.3) mg/dL AST (14-36) U/L ALT (4-34) U/L Alkaline Phosphatase (38-126) U/L Troponin I 0.156 H* (0.000-0.034) ng/mL Total Protein (6.3-8.2) g/dL Albumin (3.5-5.0) g/dL TSH (0.465-4.680) mIU/L - EKG Data -: EKG Interpreted by Me EKG Comments: Initial EKG showed evidence of atrial fibrillation with rapid ventricular response this was interpreted by me. Ventricular rate 122 QRS 84 QT since QTC to 86/358. Post conversion EKG showed a normal sinus rhythm rate 87. 01 30 QRS duration 81 QT since QTC 348/393 was also interpreted by me - Radiology Data Interpreted by me: X-ray interpreted by me no acute process Critical Care Time Critical Care Time: Yes Total Critical Care Time: 45 Disposition Clinical Impression: Rapid atrial fibrillation, Elevated troponin, Hyperglycemia, Headache Disposition: ADMITTED IP TO THIS [facility] Condition: Fair Referrals: Jet Boswell DO [Primary Care Provider] - 1-2 days Decision Date: 02/23/23 Decision Time: 13:50
[2023-02-23] MEDS: DILTIAZEM 125 MG in SODIUM CHLORIDE 0.9% 100 ML IV SCH ×2 (10:29→21:13)
[2023-02-23 10:52] LABS: Basophils % (A) 0 %; Eosinophils # (A) 0.2 k/uL (0-0.7); Eosinophils % (A) 2 %; HCT 41.5 % (34.0-46.0); HGB 13.7 gm/dL (11.4-16.0); Lymphocytes # (A) 3.2 k/uL (1.0-4.8); Lymphocytes % (A) 36 %; MCH 28.6 pg (25.0-35.0); MCHC 33.1 g/dL (31.0-37.0); MCV 86.4 fL (80.0-100.0); Mean Platelet Volume 8.5; Monocytes # (A) 0.5 k/uL (0-1.0); Monocytes % (A) 6 %; Neutrophils # (A) 4.8 k/uL (1.3-7.7); Neutrophils % (A) 54 %; Platelet Count 227 k/uL (150-450); RDW 13.6 % (11.5-15.5); WBC 8.9 k/uL (3.8-10.6)
[2023-02-23 11:11] LABS: ALT 21 U/L (4-34); AST 21 U/L (14-36); African American GFR (CKD) >90 (>60 ml/min/1.73 sqM); Alkaline Phosphatase 88 U/L (38-126); Anion Gap 11 mmol/L; Blood Urea Nitrogen 14 mg/dL (7-17); Calcium 9.9 mg/dL (8.4-10.2); Carbon Dioxide 20 mmol/L (22-30); Chloride 103 mmol/L (98-107); Glucose 293 mg/dL (74-99); Magnesium 1.6 mg/dL (1.6-2.3); Non-African American GFR(CKD) >90 (>60 ml/min/1.73 sqM); Potassium 3.9 mmol/L (3.5-5.1); Sodium 134 mmol/L (137-145); Total Bilirubin 0.7 mg/dL (0.2-1.3); Total Protein 7.1 g/dL (6.3-8.2)
[2023-02-23 11:14] LABS: Partial Thromboplastin Time 23.2 sec (22.0-30.0); Prothrombin Time 10.7 sec (9.0-12.0)
[2023-02-23] MEDS ORDERED: ACETAMINOPHEN TAB 500 MG TAB PO STA (11:41)
--- NOTE | 2023-02-23 11:44 | XR ---
EXAMINATION TYPE: XR chest 2V DATE OF EXAM: 02/23/2023 11:04 AM COMPARISON: Chest radiographs from 05/16/2021 TECHNIQUE: XR chest 2V Frontal and lateral views of the chest. CLINICAL INDICATION:Female, 67 years old with history of dysrhythmia; FINDINGS: Lungs/Pleura: Low lung volumes are present. There is no evidence of pleural effusion, focal consolida tion, or pneumothorax. Pulmonary vascularity: Unremarkable. Heart/mediastinum: Cardiomediastinal silhouette is unremarkable. Musculoskeletal: No acute osseous pathology. IMPRESSION: Low lung volumes with a generalized hazy appearance which could represent atelectasis versus pulmonar y edema correlate with serum BNP.
[2023-02-23] MEDS ORDERED: fentaNYL (PF) 50 MCG/ML 2 ML AMP IVP STA (13:26)
[2023-02-23] MEDS ORDERED: NALOXONE 0.4 MG/ML 1 ML VIAL IV PRN (14:11)
[2023-02-23] MEDS: SODIUM CHLORIDE 0.9% 1,000 ML IV SCH (15:36)
[2023-02-23 17:08] LABS: T4, Free (Free Thyroxine) 2.03 ng/dL (0.78-2.19)
--- NOTE | 2023-02-23 23:07 | HP ---
HISTORY AND PHYSICAL CHIEF COMPLAINTS: Palpitations, headache, and hypertension. HISTORY OF PRESENT ILLNESS: This is a 67-year-old woman with a past medical history of atrial fibrillation, had cardiac ablation for atrial fibrillation at [facility]. The patient went home. The patient is noted to have high blood pressure. The patient is complaining of some palpitations and the patient also felt lightheaded, dizzy, and the patient came to [facility], was found to have atrial fibrillation with fast ventricular rate. The patient was started on Cardizem drip and the patient is being closely monitored. There is no history of any fever, rigors, or chills at this time. PAST MEDICAL HISTORY: Reviewed include diabetes mellitus, hypertension, hyperlipidemia, atrial fibrillation. Rest of the history and rest of the chart is also reviewed. HOME MEDICATIONS: Reviewed include apixaban. Doses are reviewed. ALLERGIES: Codeine. FAMILY HISTORY: History of partial thyroidectomy. SOCIAL HISTORY: No history of smoking. Rare alcohol intake. REVIEW OF SYSTEMS: Fourteen-point review is negative except as mentioned earlier. PHYSICAL EXAMINATION: VITAL SIGNS: Pulse is 125 irregular, blood pressure 188/106, respirations 20. HEENT: Conjunctivae normal. NECK: No JVD. CARDIOVASCULAR: S1, S2, irregular. RESPIRATIONS: Breath sounds diminished at the bases. ABDOMEN: Soft, nontender. LEGS: No edema. NERVOUS SYSTEM: Nonfocal. LABORATORY DATA: CBC within normal limits. Rest of the labs are noted. ASSESSMENT: 1. Atrial fibrillation with fast ventricular rate. 2. Recent cardiac ablation for atrial fibrillation. 3. Troponin 0.156. Rule out acute [id number]-elevation myocardial infarction. 4. Decreased TSH. 5. Diabetes mellitus type 2. 6. Hypertension. 7. Hyperlipidemia. RECOMMENDATIONS AND DISCUSSION: In this 67-year-old woman, who presented with multiple complex medical issues, we will monitor the patient closely. I would recommend continue the Cardizem, which is at 5 mg/hour and continue the apixaban. Cardiology consultation. Free T4 and free T3. Otherwise, resume home medications once they are confirmed. Prognosis guarded. Further recommendations to follow. Discussed with family. MMODL / IJN: [id number] /
[2023-02-24 00:37] LABS: Glucose,Whole Blood 174 mg/dL (70-110)
[2023-02-24 00:47] VITALS: TEMP 98
[2023-02-24] MEDS: APIXABAN 5 MG TAB PO SCH ×2 (00:47→09:05)
[2023-02-24] MEDS: SODIUM CHLORIDE 0.9% 1,000 ML IV SCH (00:47)
[2023-02-24] MEDS: ACETAMINOPHEN TAB 325 MG TAB PO PRN ×2 (00:57→09:06)
[2023-02-24 06:11] LABS: Glucose,Whole Blood 188 mg/dL (70-110)
[2023-02-24] MEDS: DILTIAZEM 125 MG in SODIUM CHLORIDE 0.9% 100 ML IV SCH (06:17)
[2023-02-24] MEDS ORDERED: METOPROLOL TARTRATE 12.5 MG TAB PO SCH (09:00)
[2023-02-24 09:53] LABS: Basophils % (A) 0 %; Eosinophils # (A) 0.2 k/uL (0-0.7); Eosinophils % (A) 3 %; HCT 40.7 % (34.0-46.0); HGB 13.2 gm/dL (11.4-16.0); Lymphocytes # (A) 2.4 k/uL (1.0-4.8); Lymphocytes % (A) 37 %; MCH 28.8 pg (25.0-35.0); MCHC 32.5 g/dL (31.0-37.0); MCV 88.7 fL (80.0-100.0); Monocytes # (A) 0.3 k/uL (0-1.0); Monocytes % (A) 5 %; Neutrophils # (A) 3.4 k/uL (1.3-7.7); Neutrophils % (A) 53 %; Platelet Count 227 k/uL (150-450); RBC 4.59 m/uL (3.80-5.40); RDW 13.6 % (11.5-15.5); WBC 6.3 k/uL (3.8-10.6)
--- NOTE | 2023-02-24 10:14 | P.CRDCN ---
History of Present Illness Consult date: 02/24/23 History of present illness: History of present illness: This is a 66-year-old female follows with Dr. Cook at paroxysmal atrial fibrillation [facility]. She has a past medical history of paroxysmal atrial fibrillation, hypertension, hyperlipidemia, diabetes mellitus type 2, hypothyroidism. Patient states that she underwent an ablation on Friday of last week for atrial fibrillation. She was discharged in a sinus rhythm and has been doing fine until yesterday about 10:30 or 11:00 yesterday morning. She developed lightheadedness and dizziness. No chest pain no shortness of breath. She came into [facility] emergency [address] was found to be in atrial fibrillation at both 125 bpm. Patient was started on Cardizem drip and has converted to sinus rhythm last evening. Patient states that she has been able to walk in her room without any difficulty, lightheadedness and dizziness have resolved. She does state that she has had a headache that's coming and going. EKG atrial fibrillation ventricular rate of 122 bpm, repeat EKG sinus rhythm with sinus arrhythmia Chest x-ray: Low lung volumes with generalized hazy appearance which could represent atelectasis versus pulmonary edema. CBC unremarkable. INR 1. Sodium 134, BUN 14 creatinine 0.56. Blood sugar 293. Troponin 0.156. TSH 0.096 with normal free T4 2 0.03. Home cardiac medications: Cardiac event monitor 05/2020 revealed sinus mechanism, episode of paroxysmal atrial tachycardia and paroxysmal atrial fibrillation. Echocardiogram 04/2020 revealed EF of 60-65%. Stress echocardiogram 01/2020 negative Review Of Systems: At the time of my evaluation: Constitutional: No fever, no chills. No weakness, fatigue or lethargy. EENT: No headache. No dizziness. Lungs: No shortness of breath, cough, no sputum production. No wheezing. Cardiovascular: No chest pain, no lower extremity edema. No palpitations. No paroxysmal nocturnal dyspnea. No orthopnea. No lightheadedness or dizziness. No syncopal episodes. Abdominal: No abdominal pain. No nausea, vomiting. No diarrhea. No constipation. No bloody or tarry stools. Genitourinary: No dysuria.. No urinary retention. Musculoskeletal: No myalgias. No muscle weakness, no frequent falls. No back pain. No neck pain. Integumentary: No wounds. No rash. No unusual bruising. Neurologic: No aphasia. No facial droop. No change in mentation. No head injury. No headache. Physical examination: Gen: This is a 67-year-old female. She is resting but appears to be comfortable and in no acute distress. VS: reviewed. Blood pressure 91/54, heart rate in the 60s and 70s. HEENT: Head is atraumatic, normocephalic. Pupils equal, round. Sclerae is anicteric. NECK: Supple. No JVD. LUNGS: Clear to auscultation. No wheezes or rhonchi. No intercostal retractions. HEART: Irregular rate and rhythm. No murmur. ABDOMEN: Soft No tenderness. EXTREMITIES: No pedal edema. No calf tenderness. NEUROLOGICAL: Patient is awake, alert and oriented x3. Assessment: Paroxysmal atrial fibrillation presented with RVR Elevated troponin most likely secondary to recent A. 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 Cook Thank you kindly for this consultation. Nurse practitioner note has been reviewed, I agree with documented findings and plan of care. Patient was seen and examined. Past Medical History Past Medical History: Diabetes Mellitus, Hyperlipidemia, Hypertension, Osteoarthritis (OA), Thyroid Disorder Additional Past Medical History / Comment(s): diabetes-diet controlled, neuropathy feet, leg weakness on occasion, pain in neck area History of Any Multi-Drug Resistant Organisms: None Reported Past Surgical History: Back Surgery, Hysterectomy Additional Past Surgical History / Comment(s): multiple moles removed, bartholin cyst , back surgery l4-l5 Past Anesthesia/Blood Transfusion Reactions: No Reported Reaction Additional Past Anesthesia/Blood Transfusion Reaction / Comment(s): pt Spiritism states does not want blood or blood products Past Psychological History: Depression Additional Psychological History / Comment(s): "not on meds right now" Smoking Status: Never smoker Past Alcohol Use History: Rare Past Drug Use History: None Reported - Past Family History Mother Family Medical History: Thyroid Disorder Additional Family Medical History / Comment(s): partial thyroidectomy Brother(s) Family Medical History: Deep Vein Thrombosis (DVT) Additional Family Medical History / Comment(s): irregular heart rate-cardiac ablation x3 Sister(s) Family Medical History: Cancer Additional Family Medical History / Comment(s): stent to drain fluid on bra in,esophageal,brain,breast Medications and Allergies Home Medications Medication Instructions Recorded Confirmed Type Apixaban [Eliquis] 5 mg PO BID@0700,1900 05/16/21 02/23/23 History Allergies Allergy/AdvReac Type Severity Reaction Status Date / Time codeine AdvReac Nausea & Verified 02/23/23 16:13 Vomiting Physical Exam Vitals: Vital Signs Temp Pulse Pulse Resp BP BP Pulse Ox 02/24/23 04:00 68 16 91/54 95 02/24/23 01:00 16 02/24/23 00:37 98 F 76 16 121/71 96 02/23/23 20:00 97.7 F 70 16 119/64 97 02/23/23 18:07 98.4 F 85 18 122/70 96 02/23/23 15:30 95 16 133/73 95 02/23/23 10:15 125 H 22 188/106 96 02/23/23 10:04 98 F 100 18 208/74 Intake and Output 02/23/23 02/24/23 02/24/23 22:59 06:59 14:59 Intake Total 96 90.667 Balance 96 90.667 Intake: Intake, IV Titration 96 90.667 Amount Diltiazem 125 mg In 96 90.667 Sodium Chloride 0.9% 100 ml @ 5 MG/HR 5 mls/hr IV .Q24H [facility] Rx#:[id number] Other: Voiding Method Bedside Commode Toilet # Voids 2 Weight 90.718 kg Results 02/24/23 08:34 02/23/23 10:31 Cardiac Enzymes 02/23/23 02/23/23 Range/Units 10:31 10:31 AST 21 (14-36) U/L Troponin I 0.156 H* (0.000-0.034) ng/mL Coagulation 02/23/23 Range/Units 10:31 PT 10.7 (9.0-12.0) sec APTT 23.2 (22.0-30.0) sec CBC 02/23/23 Range/Units 10:31 WBC 8.9 (3.8-10.6) k/uL RBC 4.80 (3.80-5.40) m/uL Hgb 13.7 (11.4-16.0) gm/dL Hct 41.5 (34.0-46.0) % Plt Count 227 (150-450) k/uL Comprehensive Metabolic Panel 02/23/23 Range/Units 10:31 Sodium 134 L (137-145) mmol/L Potassium 3.9 (3.5-5.1) mmol/L Chloride 103 (98-107) mmol/L Carbon Dioxide 20 L (22-30) mmol/L BUN 14 (7-17) mg/dL Creatinine 0.56 (0.52-1.04) mg/dL Glucose 293 H (74-99) mg/dL Calcium 9.9 (8.4-10.2) mg/dL AST 21 (14-36) U/L ALT 21 (4-34) U/L Alkaline Phosphatase 88 (38-126) U/L Total Protein 7.1 (6.3-8.2) g/dL Albumin 4.0 (3.5-5.0) g/dL Current Medications Generic Name Dose Route Start Last Admin Trade Name Freq PRN Reason Stop Dose Admin Acetaminophen 650 mg 02/23/23 14:11 02/24/23 00:57 Acetaminophen Tab 325 Mg Tab PO 650 mg Q6HR PRN Administration Mild Pain or Fever > 100.5 Apixaban 5 mg 02/23/23 21:00 02/24/23 00:47 Apixaban 5 Mg Tab PO Not Given BID [facility] Protocol Metoprolol Tartrate 12.5 mg 02/24/23 09:00 Metoprolol Tartrate 12.5 Mg Tab PO BID [facility] Naloxone HCl 0.2 mg 02/23/23 14:11 Naloxone 0.4 Mg/Ml 1 Ml Vial IV Q2M PRN Opioid Reversal Intake and Output 02/23/23 02/24/23 02/24/23 22:59 06:59 14:59 Intake Total 96 90.667 Balance 96 90.667 Intake: Intake, IV Titration 96 90.667 Amount Diltiazem 125 mg In 96 90.667 Sodium Chloride 0.9% 100 ml @ 5 MG/HR 5 mls/hr IV .Q24H [facility] Rx#:[id number] Other: Voiding Method Bedside Commode Toilet # Voids 2 Weight 90.718 kg 02/23/23 10:31 02/23/23 10:31
[2023-02-24 10:38] LABS: African American GFR (CKD) >90 (>60 ml/min/1.73 sqM); Anion Gap 13 mmol/L; Blood Urea Nitrogen 11 mg/dL (7-17); Calcium 9.5 mg/dL (8.4-10.2); Carbon Dioxide 16 mmol/L (22-30); Chloride 108 mmol/L (98-107); Glucose 285 mg/dL (74-99); Non-African American GFR(CKD) >90 (>60 ml/min/1.73 sqM); Sodium 137 mmol/L (137-145)
[2023-02-24 10:40] VITALS: RESP 18
[2023-02-24 10:41] VITALS: BP 133/67; PULSE 80
[2023-02-24 10:52] LABS: Potassium 5.5 mmol/L (3.5-5.1)
[2023-02-24 11:23] LABS: Glucose,Whole Blood 174 mg/dL (70-110)
--- NOTE | 2023-02-24 22:09 | P.DS ---
Providers Date of admission: 02/23/23 14:11 Attending physician: Uche Brown Consults: 02/23/23 14:11 Consult Physician Routine Consulting Provider: Vitor Awan Consult Reason/Comments: Rapid atrial fibrillation, recent ablation Do you want consulting provider notified?: Already Contacted Primary care physician: Jet Boswell [facility] Course: Discharge diagnoses: Paroxysmal atrial fibrillation on anticoagulation, controlled upon discharge Elevated troponin, secondary to above Mild hyperthyroidism Hyperextension Hyperlipidemia Obesity with BMI of 30.4. Diabetes mellitus Hospital course: This is a pleasant 67 years old female with past medical history of atrial fibrillation, hypertension, hyperlipidemia, diabetes mellitus as above. Presents because of paroxysmal A. fib and rapid ventricular response on admission with heart rate was about 08/16/2049. Patient heart rate was controlled with Cardizem drip and switched to sinus. Evaluated by telephone maintainer and cleared for discharge. Patient confirms to me she has on Eliquis at home. Patient TSH was low at 0.09, free T4 is within the reference range at 2.0 but on the high side. Free T3 is elevated at 6. I told the patient she might have hyperthyroidism recommended to start therapy however patient declined course and benefits explained for her. She wants to follow up with PCP on dowel setting machine operator as an outpatient within 1-2 days and within one week. Presents and patient states that she is asymptomatic. She denies chest pain dyspnea. She denies any other symptoms. Patient was cleared for discharge by telephone maintainer today. Problems and management plan were discussed with the patient and he verbalized understanding and acceptance Patient was found stable and can be discharged home in guarded prognosis however he needs follow-up as an outpatient. Patient was instructed to follow up with PCP Dr. Boswell within one week and patient agrees Patient was instructed to follow up with her telephone maintainer Dr. Elizabeth in 1 week after discharge and she agrees. Also patient was instructed to follow up with dowel setting machine operator for thyroid disease with Dr. Rivas in one week and she agrees state that she has seen Dr. Vigil before Physical exam Gen: patient is a AAOx3, no distress CVS: S1-S2, RRR, no murmur Lungs: B/L CTA, no wheezing Abdomen: soft, no distention, no tenderness, positive bowel sounds Extremity: no leg edema or induration Time spent more than 35 minutes Patient Condition at Discharge: Fair Plan - Discharge Summary Discharge Rx Participant: No New Discharge Prescriptions: New Metoprolol Tartrate [Lopressor] 12.5 mg PO BID #60 tab Continue Apixaban [Eliquis] 5 mg PO BID@699,0 Discharge Medication List Apixaban [Eliquis] 5 mg PO BID@07,1900 05/16/21 [History] Metoprolol Tartrate [Lopressor] 12.5 mg PO BID #60 tab 02/24/23 [Rx] Follow up Appointment(s)/Referral(s): Shoaib Rivers MD [REFERRING] - 1 Week Jet Boswell DO [Primary Care Provider] - 04/04/23 8:45 am Qasim Llanos MD [STAFF PHYSICIAN] - 03/05/23 10:15 am Patient Instructions/Handouts: A-fib (Atrial Fibrillation) (DC) Activity/Diet/Wound Care/Special Instructions: Heart healthy diet activity is restricted till you see your doctor we recommend you follow up with your telephone maintainer in one week otherwise we recommend you follow up with your cardiology group and as instructed in discharge papers We recommend to check you thyroid function test with your doctor ( and/or ) in one week Discharge Disposition: HOME SELF-CARE
== END 2023-02-24 13:21 | disposition home or self-care (01) ==
LOC: EC 10:01 → 3SCARD 14:11
PROVIDERS: ADMIT Hospitalist; ATTEND Hospitalist
DX: I48.0 Paroxysmal atrial fibrillation (principal); E11.65 Type 2 diabetes mellitus with hyperglycemia; I10 Essential (primary) hypertension; E03.9 Hypothyroidism, unspecified; R77.8 Other specified abnormalities of plasma proteins; E11.40 Type 2 diabetes mellitus with diabetic neuropathy, unspecified; E78.5 Hyperlipidemia, unspecified; M19.90 Unspecified osteoarthritis, unspecified site; E05.90 Thyrotoxicosis, unspecified without thyrotoxic crisis or storm; F32.A Depression, unspecified; Z68.30 Body mass index [BMI] 30.0-30.9, adult; E66.9 Obesity, unspecified; Z79.01 Long term (current) use of anticoagulants; Z79.84 Long term (current) use of oral hypoglycemic drugs; Z79.899 Other long term (current) drug therapy; Z88.5 Allergy status to narcotic agent; Z90.710 Acquired absence of both cervix and uterus; Z98.890 Other specified postprocedural states; Z82.49 Family history of ischemic heart disease and other diseases of the circulatory system; Z83.49 Family history of other endocrine, nutritional and metabolic diseases; Z80.9 Family history of malignant neoplasm, unspecified
CPT/HCPCS: 96366 ×2; 96376; 96365; 96375; 99291; 36415; 93005; 84439; 84481; 80053; 80048; 83735; 84132; 84443; 84484; 85025 ×2; 85610; 85730; 71046; G0378 ×2; J3010; 96374

== ENCOUNTER → 2023-05-08 | Outpatient (CLI) | payer MEDICARE ==
--- NOTE | 2023-05-08 12:11 | CT ---
EXAMINATION TYPE: CT abdomen wo con DATE OF EXAM: 05/08/2023 COMPARISON: None HISTORY: Right lower quadrant pain CT DLP: 396.9 mGycm Automated exposure control for dose reduction was used. TECHNIQUE: Helical acquisition of images was performed from the lung bases through the top of iliac crest to include entire abdomen. CONTRAST: Performed without Oral Contrast and without IV contrast. FINDINGS: LUNG BASES: On axial image 8 right upper lobe there is a 2 mm nodule LIVER/GB: No significant abnormality is appreciated. PANCREAS: No significant abnormality is seen. SPLEEN: No significant abnormality is seen. ADRENALS: No significant abnormality is seen. KIDNEYS: No significant abnormality is seen. Appendix normal. BOWEL: No significant abnormality is seen. LYMPH NODES: No significant abnormality is appreciated. OSSEOUS STRUCTURES: Hypertrophic and degenerative changes in the spine vertebral body hemangioma. FREE AIR: No free air is visualized. OTHER: Aorta normal caliber. Small hiatal hernia. Mild vascular atherosclerotic changes. IMPRESSION: 1. No acute process. 2. Small hiatal hernia. 3. There is a 2 mm micronodule within the right upper lobe which has a benign appearance and can be f ollowed in 12 months with low dose screening CT scan chest as clinically warranted..
== END | disposition home or self-care (01) ==
LOC: RADCTMAIN 10:12
PROVIDERS: ATTEND Family Medicine
DX: R10.31 Right lower quadrant pain (principal); K44.9 Diaphragmatic hernia without obstruction or gangrene; R91.1 Solitary pulmonary nodule
CPT/HCPCS: 74150

== ENCOUNTER → 2023-08-20 | Outpatient (CLI) | payer MEDICARE ==
--- NOTE | 2023-08-20 08:47 | MM ---
Reason for Exam: Clinical finding. Last mammogram was performed 2 year(s) and 4 month(s) ago. Indicated Problems: Pain of both sides (Focal) for 2 Month(s) : RIGHT BREAST MOSTLY AXILLARY . Patient History: Menarche at age 18. First Full-Term at age 22. Hysterectomy at age 37. Postmenopausal. Patient used Estrogen for 14 years. Cyst Aspiration on the Right side. Core Biopsy on the Right side. 08/06/2002, Benign Stereotactic Core Biopsy on the right side. Sister had breast cancer, age 36. Sister had breast cancer, age 50. Risk Values: Amanda 5 year model risk: 9.2%. NCI Lifetime model risk: 29.2%. Tissue Density: There are scattered fibroglandular densities. Findings: Analyzed By CAD. Unchanged global asymmetry lateral right breast with adjacent chronic nodularity. Microclip right breast from prior biopsy. A couple small calcifications on the right also remain unchanged. No significant change from prior exams. Overall Assessment: Benign, BI-RAD 2 Management: Screening Mammogram of both breasts in 1 year. SEE NOTE BELOW IN REGARDS TO PATIENT'S INCREASED 5 YEAR AMANDA SCORE AND INCREASED LIFETIME RISK SCORE. Further clinical management of patient's right greater than left breast pain. Results were given to the patient verbally at the time of exam. Patient should continue monthly self-breast exams. A clinical breast exam by your physician is recommended on an annual basis. This exam should not preclude additional follow-up of suspicious palpable abnormalities. Note on Amanda scores and lifetime risk: 1. A Amanda score greater than 3% is considered moderate risk. If this is the case, consider specialist referral to assess eligibility for a risk reducing agent. 2. If overall lifetime risk for the development of breast cancer is 20% or higher, the patient may qualify for future screening with alternating mammogram and breast MRI. Electronically signed and approved by: Herbert Hammond M.D. Radiologist
== END | disposition home or self-care (01) ==
LOC: RADMAMWWP 07:19
PROVIDERS: ATTEND Family Medicine
DX: R92.323 Mammographic fibroglandular density, bilateral breasts (principal); N64.4 Mastodynia; Z90.710 Acquired absence of both cervix and uterus; Z78.0 Asymptomatic menopausal state; Z80.3 Family history of malignant neoplasm of breast
CPT/HCPCS: 77066; G0279; 77062

== ENCOUNTER → 2024-03-30 | Outpatient (CLI) | payer MEDICARE ==
--- NOTE | 2024-03-30 12:46 | CT ---
EXAMINATION TYPE: CT soft tissue neck wo con DATE OF EXAM: 03/30/2024 COMPARISON: 10/18/2015 HISTORY: 68-year-old female R22.1, posterior neck swelling, pain in right shoulder TECHNIQUE: Contiguous axial scanning of the soft tissues of the neck without IV contrast. Coronal and sagittal reconstructions performed. CT DLP: 506.2 mGycm Automated exposure control for dose reduction was used. FINDINGS: Visualized intracranial structures, orbits and globes, mastoid air cells appear clear. There is leftward nasal septal deviation and a 1.9 cm mucosal retention cyst along the floor of the r ight maxillary sinus. Nasopharynx is clear. There is mild to moderate hypertrophy of the bilateral palatine tonsils which shows improvement madiha red to 2016. Nodular thickening on the left side measuring 9 mm is noted and could be assessed with d irect visualization. Refer to axial image 57. Epiglottis and prevertebral soft tissues are satisfactory. Glottic and subglottic structures as well as the tracheal column and visualized upper lungs are clear . Redemonstrated multinodular thyroid goiter with asymmetrically larger left lobe of the thyroid gland. Appropriate ultrasound follow-up based on previous workup. Numerous scattered nonenlarged and borderline size lymph nodes are redemonstrated. These do not show any progressive enlargement compared to 2016 and most are slightly smaller. 1 cm submental space lymp h node. Station 2A lymph node measures up to 1 cm now versus 1.3 cm, previously. The submandibular and parotid glands appear satisfactory. Bones: Moderate disc/endplate degenerative change C5-C7 levels. Degenerative grade 1 anterolisthesis C7-T1 and T1-T2. IMPRESSION: 1. NUMEROUS SCATTERED NONENLARGED AND BORDERLINE SIZED LYMPH NODES THROUGHOUT THE NECK ARE EITHER SIM ILAR OR SMALLER COMPARED TO 2016. 2. THE PALATINE AND LINGUAL TONSILLAR HYPERTROPHY BACK IN 2016 ALSO SHOWS IMPROVEMENT. THERE IS RESID UAL [id number] HYPERTROPHY AND 9 MM NODULARITY ALONG THE LEFT TONSILLAR PILLAR WHICH CAN BE ASS ESSED WITH DIRECT VISUALIZATION TO EXCLUDE A MUCOSAL LESION. 3. MULTINODULAR THYROID GOITER WITH ASYMMETRICALLY LARGER LEFT LOBE REDEMONSTRATED. CORRELATE WITH FI NDINGS ON PRIOR WORKUP. ULTRASOUND FOLLOW-UP APPROPRIATE.
== END | disposition home or self-care (01) ==
LOC: RADCTMAIN 12:11
PROVIDERS: ATTEND Family Medicine
DX: R22.1 Localized swelling, mass and lump, neck
CPT/HCPCS: 70490

== ENCOUNTER → 2024-07-08 | Outpatient (CLI) | payer MEDICARE ==
--- NOTE | 2024-07-08 08:22 | US ---
EXAMINATION TYPE: US thyroid st tissue head/neck DATE OF EXAM: 07/08/2024 COMPARISON: NONE CLINICAL INDICATION: Female, 68 years old with history of E04.2 THYROID NODULE; thyroid nodules. TECHNIQUE: Grayscale and color Doppler imaging of the thyroid gland. FINDINGS: GLAND SIZE: Right Lobe: 5.3 x 1.9 x 2.1 cm Overall Parenchyma: heterogeneous Left Lobe: 6.1 x 3.4 x 3.1 cm Overall Parenchyma: heterogeneous Isthmus Thickness: .5 cm NODULES RIGHT: # of nodules measured on right: 3 1. 2.2 X 1.4 x 2.5 cm, lower , Prior size: 1.7 x 1.3 x 1.5 cm TIRADS Score: 3 TIRADS Category 3: Mildly Suspicious Composition: Mixed cystic and solid (1 point). Echogenicity: Hypoechoic (2 points). Shape: Wider than tall (0 points). Margin: Smooth (0 points). Echogenic foci: None or large comet-tail artifacts (0 points) Recommendation: If >2.5cm: FNA; If >1.5cm: Follow up at 1,3,5 years 2. 1.3 X 1.2 x 1.0 cm, lower , Prior size: 1.1 x .8 x 1.1 cm TIRADS Score: 3 TIRADS Category 3: Mildly Suspicious Composition: Solid or almost completely solid (2 points). Echogenicity: Hyperechoic or isoechoic (1 point). Shape: Wider than tall (0 points). Margin: Smooth (0 points). Echogenic foci: None or large comet-tail artifacts (0 points) Recommendation: If >2.5cm: FNA; If >1.5cm: Follow up at 1,3,5 years LEFT: # of nodules measured on left: 2 1. 4.6 X 1.3 x 3.7 cm, mid , Prior size: 4.9 x 1.7 x 3.6 cm TIRADS Score: 4 TIRADS Category 4: Composition: Solid or almost completely solid (2 points). Echogenicity: Hypoechoic (2 points). Shape: Wider than tall (0 points). Margin: Smooth (0 points). Echogenic foci: None or large comet-tail artifacts (0 points) Recommendation: If >1.5cm: FNA; If >1cm: Follow up at 1,2, 3,5 years 2. 2.5 X 1.4 x 2.5 cm, lower Prior size: 1.7 x 1.0 x 1.8 cm TIRADS Score: 4 TIRADS Category 4: Moderately Suspicious Composition: Solid or almost completely solid (2 points). Echogenicity: Hypoechoic (2 points). Shape: Wider than tall (0 points). Margin: Smooth (0 points). Echogenic foci: None or large comet-tail artifacts (0 points) Recommendation: If >1.5cm: FNA; If >1cm: Follow up at 1,2, 3,5 years ISTHMUS: # of nodules measured in the isthmus: 0 Bilateral neck scanned, no evidence of lymphadenopathy. IMPRESSION: Thyroid nodules some of which meet criteria for tissue sampling of nodularity performed. See above. [facility], , 07/08/2024 8:20 AM
== END | disposition home or self-care (01) ==
LOC: RADUSWWP 07:29
PROVIDERS: ATTEND Otolaryngology
DX: E04.2 Nontoxic multinodular goiter (principal)
CPT/HCPCS: 76536

== ENCOUNTER → 2024-08-25 | Outpatient (CLI) | payer MEDICARE ==
--- NOTE | 2024-08-25 08:26 | MM ---
Reason for Exam: Clinical finding. Last screening mammogram was performed 12 month(s) ago. Patient History: Menarche at age 18. First Full-Term at age 22. Hysterectomy at age 37. Postmenopausal. Other cancer, age 68. Patient used Estrogen for 14 years. Cyst Aspiration on the Right side. Core Biopsy on the Right side. 08/06/2002, Benign Stereotactic Core Biopsy on the right side. Sister had breast cancer, age 36. Sister had breast cancer, age 50. Risk Values: Shana 5 year model risk: 9.3%. NCI Lifetime model risk: 28.2%. Tissue Density: There are scattered areas of fibroglandular density. Findings: Analyzed By CAD. Right breast biopsy clip. No new suspicious masses, calcifications or distortions. Overall Assessment: Benign, BI-RAD 2 Management: Screening Mammogram of both breasts in 1 year. Results were given to the patient verbally at the time of exam. Patient should continue monthly self-breast exams. A clinical breast exam by your physician is recommended on an annual basis. This exam should not preclude additional follow-up of suspicious palpable abnormalities. Note on Shana scores and lifetime risk: 1. A Shana score greater than 3% is considered moderate risk. If this is the case, consider specialist referral to assess eligibility for a risk reducing agent. 2. If overall lifetime risk for the development of breast cancer is 20% or higher, the patient may qualify for future screening with alternating mammogram and breast MRI. [facility], , 08/25/2024 8:23 AM. Electronically signed and approved by: Bobby Clayton DO
== END | disposition home or self-care (01) ==
LOC: RADMAMWWP 07:55
PROVIDERS: ATTEND Family Medicine
DX: R92.2 Inconclusive mammogram (principal); R92.323 Mammographic fibroglandular density, bilateral breasts; N64.4 Mastodynia; Z78.0 Asymptomatic menopausal state; Z80.3 Family history of malignant neoplasm of breast
CPT/HCPCS: 77066; G0279; 77062